=== PATIENT | male | born 1965 | race Hispanic/Latino ===

== ENCOUNTER 2023-08-10 16:24 | Emergency (ER) | payer SELFPAY ==
--- OUTSIDE RECORDS SUMMARY | 2023-08-10 16:28 | XMS REPORT | Continuity of Care Document ---
:1965 Author Organization [facility] t Address [address] [facility] [address] [place] [address] Care Team Providers Name Role Phone PCP, PATIENT DOES NOT HAVE A Primary Care Physician UnavailFatuma Polk Attending Clinician Unavailable Fatuma Gaytan Attending Clinician Doctor Unassigned, [place] Attending Clinician Unavailable TIERRA LIU Attending Clinician Unavailable LEEANNE AMARO Attending Clinician Unavailable Leeanne Anne Attending Clinician Vesta Morgan MD Attending Clinician Fatuma NICE Admitting Clinician Unavailable Payers Payer Name Policy Type Policy Number Effective Date Expiration Date S ource MEDICAID PENDING PENDING 2021 00:00:00 Problems Condition Condition Condition Status Onset Resolution Last Treating Co mments Source Name Details Category Date Date Treatment Clinician Date No known No known Disease Unive rs active active ity of problems problems [facility] Allergies, Adverse Reactions, Alerts Allergy Allergy Status Severity Reaction(s) Onset Inactive Treating Comm ents Source Name Type Date Date Clinician NO KNOWN Drug Active Univers ALLERGIE Class ity of S [facility] Social History Social Habit Start Date Stop Date Quantity Comments Source History SDOH University o f Alcohol Comment [place] [facility] Exposure to Not sure University of SARS-CoV-2 (event) [place] [facility] History of tobacco Cigarette Smoker University of use [place] [facility] History SDOH University o f Alcohol Std Drinks [place] [facility] History [facility] University o f Alcohol Binge [place] [facility] Cigarettes smoked 2021-07-05 2021-07-05 Univers ity of current (pack per 00:00:00 00:00:00 [facility] ) - Reported Branch Tobacco use and 2021-07-05 2021-07-05 Never used Universit y of exposure 00:00:00 00:00:00 [facility] Branch Alcohol intake 2021-07-05 2021-07-05 Lifetime University of 00:00:00 00:00:00 non-drinker [place] [facility] (finding) Branch History SDOH 2021-07-05 2021-07-05 1 University o f Alcohol Frequency 00:00:00 00:00:00 [facility] Tobacco Comment 2021-07-05 2021-07-05 pt smokes 3 Universi ty of 00:00:00 00:00:00 packs in a week [facility] ical [place] Sex [birth year] Universit y of 00:00:00 00:00:00 [facility] Smoking Status Start Date Stop Date Source Current every day smoker 2021-07-05 00:00:00 Uni versity of [facility] Unknown if ever smoked [facility] Medications Ordered Filled Start Stop Current Ordering Indication Dosage Frequency Signature Comments Components Source Medication Medication Date Date Medication? Clinician (SIG) Name Name magnesium 2021- No 2g 2 g, IV Univ ers sulfate in 12-06 Piggyback, it y of water 2 20:45: 22:55 ONCE, 1 [place] gram/50 mL 00 :00 dose, On Medic al (4 %) Tue Branch infusion 2 12/06/21 at g 1445, Routine NaCl 0.9% 2021- No 1000mL at 999 Uni vers (NS) bolus 12-06 mL/hr, ity of infusion 19:30: 20:30 1,000 mL, Bhargav as 1,000 mL 00 :00 IV Medical Infusion, Branch ONCE, 1 dose, On 12/06/21 at 1330, STAT ibuprofen 2020-11 Yes [id number] 600mg Take 1 U nivers 600 mg 0-11 tablet by ity of tablet 00:00: mouth [place] 00 every 6 Medical (six) Branch hours as needed for Pain (scale 4-6). gabapentin 2020-11 Yes [id number] 100mg Take 1 Univers 100 mg 0-11 capsule by ity of capsule 00:00: mouth 3 00 (three) Medical times Branch daily. ibuprofen 2020-11 Yes [id number] 600mg Take 1 U nivers 600 mg 0-11 tablet by ity of tablet 00:00: mouth [place] 00 every 6 Medical (six) Branch hours as needed for Pain (scale 4-6). gabapentin 2020-11 Yes [id number] 100mg Take 1 Univers 100 mg 0-11 capsule by ity of capsule 00:00: mouth 3 00 (three) Medical times Branch daily. ibuprofen 2020-11 Yes [id number] 600mg Take 1 U nivers 600 mg 0-11 tablet by ity of tablet 00:00: mouth [place] 00 every 6 Medical (six) Branch hours as needed for Pain (scale 4-6). gabapentin 2020-11 Yes [id number] 100mg Take 1 Univers 100 mg 0-11 capsule by ity of capsule 00:00: mouth 3 00 (three) Medical times Branch daily. metformin Yes Take by Unive rs HCl 8-17 mouth. ity of (METFORMIN 15:40: [place] ORAL) [address] [place] [address] Branch metformin Yes Take by Unive rs HCl 8-17 mouth. ity of (METFORMIN 15:40: [place] ORAL) Medical Branch metformin Yes Take by Unive rs HCl 8-17 mouth. ity of (METFORMIN 15:40: [place] ORAL) Medical Branch metformin Yes Take by Unive rs HCl 8-17 mouth. ity of (METFORMIN 10:40: [place] ORAL) Medical Branch metformin Yes Take by Unive rs HCl 8-17 mouth. ity of (METFORMIN 10:40: [place] ORAL) Medical Branch metformin Yes Take by Unive rs HCl 8-17 mouth. ity of (METFORMIN 10:40: [place] ORAL) Medical Branch tamsulosin Yes [id number] .4mg Take 1 U nivers 0.4 mg 24 8-17 capsule by ity of hr capsule 00:00: mouth [place] 00 daily. Medical Branch tamsulosin Yes [id number] .4mg Take 1 U nivers 0.4 mg 24 8-17 capsule by ity of hr capsule 00:00: mouth [place] 00 daily. Medical Branch tamsulosin 0 Yes [id number] .4mg Take 1 U nivers 0.4 mg 24 8-17 capsule by ity of hr capsule 00:00: mouth [place] 00 daily. Medical Branch tamsulosin 0 Yes [id number] .4mg Take 1 U nivers 0.4 mg 24 8-17 capsule by ity of hr capsule 00:00: mouth [place] 00 daily. Medical Branch tamsulosin Yes [id number] .4mg Take 1 U nivers 0.4 mg 24 8-17 capsule by ity of hr capsule 00:00: mouth [place] 00 daily. Medical Branch tamsulosin Yes [id number] .4mg Take 1 U nivers 0.4 mg 24 8-17 capsule by ity of hr capsule 00:00: mouth [place] 00 daily. Medical Branch ondansetron 2020- No 4mg 4 mg, Slow Univers (ZOFRAN 06-30 IV Push, ity of (PF)) 10:15: 09:10 ONCE, 1 [place] injection 4 00 :00 dose, [facility] ical mg 06/30/21 at Branch 0515, WERO ketorolac 2020- No 30mg 30 mg, Unive rs (TORADOL) 06-30 Slow IV ity of injection 10:15: 09:10 Push, [place] 30 mg 00 :00 ONCE, 1 Medical dose, [facility] 06/30/21 at 05, Routine
receiving team member approving Restricted medication : VESTA MORGAN ketorolac Yes [id number] 10mg Take 1 Un ambika 10 mg 8-12 tablet by ity of tablet 00:00: mouth [place] 00 every 6 Medical (six) Branch hours as needed for Pain (scale 7-10). ondansetron 2020-0 Yes [id number] 4mg Take 1 Univers (ZOFRAN) 4 8-12 tablet by ity of mg tablet 00:00: mouth [place] 00 every 8 Medical (eight) Branch hours as needed for Nausea and Vomiting (N/V). tamsulosin 2020-0 Yes [id number] .4mg Take 1 U nivers 0.4 mg 24 8-12 capsule by ity of hr capsule 00:00: mouth at Bhargav as 00 bedtime. Medical Branch ketorolac 2020-0 Yes [id number] 10mg Take 1 Un ambika 10 mg 8-12 tablet by ity of tablet 00:00: mouth [place] 00 every 6 Medical (six) Branch hours as needed for Pain (scale 7-10). ondansetron 2020-0 Yes [id number] 4mg Take 1 Univers (ZOFRAN) 4 8-12 tablet by ity of mg tablet 00:00: mouth [place] 00 every 8 Medical (eight) Branch hours as needed for Nausea and Vomiting (N/V). tamsulosin 2020-0 Yes [id number] .4mg Take 1 U nivers 0.4 mg 24 8-12 capsule by ity of hr capsule 00:00: mouth at Bhargav as 00 bedtime. Medical Branch ketorolac 2020-0 Yes [id number] 10mg Take 1 Un ambika 10 mg 8-12 tablet by ity of tablet 00:00: mouth [place] 00 every 6 Medical (six) Branch hours as needed for Pain (scale 7-10). ondansetron 2020-0 Yes [id number] 4mg Take 1 Univers (ZOFRAN) 4 8-12 tablet by ity of mg tablet 00:00: mouth [place] 00 every 8 Medical (eight) Branch hours as needed for Nausea and Vomiting (N/V). tamsulosin 2020-0 Yes [id number] .4mg Take 1 U nivers 0.4 mg 24 8-12 capsule by ity of hr capsule 00:00: mouth at Bhargav as 00 bedtime. Medical Branch ketorolac 2020-0 Yes [id number] 10mg Take 1 Un ambika 10 mg 8-12 tablet by ity of tablet 00:00: mouth [place] 00 every 6 Medical (six) Branch hours as needed for Pain (scale 7-10). ondansetron 2020-0 Yes [id number] 4mg Take 1 Univers (ZOFRAN) 4 8-12 tablet by ity of mg tablet 00:00: mouth [place] 00 every 8 Medical (eight) Branch hours as needed for Nausea and Vomiting (N/V). tamsulosin 2020-0 Yes [id number] .4mg Take 1 U nivers 0.4 mg 24 8-12 capsule by ity of hr capsule 00:00: mouth at Bhargav as 00 bedtime. Medical Branch ketorolac 2020-0 Yes [id number] 10mg Take 1 Un ambika 10 mg 8-12 tablet by ity of tablet 00:00: mouth [place] 00 every 6 Medical (six) Branch hours as needed for Pain (scale 7-10). ondansetron 2020-0 Yes [id number] 4mg Take 1 Univers (ZOFRAN) 4 8-12 tablet by ity of mg tablet 00:00: mouth [place] 00 every 8 Medical (eight) Branch hours as needed for Nausea and Vomiting (N/V). tamsulosin 2020-0 Yes [id number] .4mg Take 1 U nivers 0.4 mg 24 8-12 capsule by ity of hr capsule 00:00: mouth at Bhargav as 00 bedtime. Medical Branch ketorolac 2020-0 Yes [id number] 10mg Take 1 Un ambika 10 mg 8-12 tablet by ity of tablet 00:00: mouth [place] 00 every 6 Medical (six) Branch hours as needed for Pain (scale 7-10). ondansetron 2020-0 Yes [id number] 4mg Take 1 Univers (ZOFRAN) 4 8-12 tablet by ity of mg tablet 00:00: mouth [place] 00 every 8 Medical (eight) Branch hours as needed for Nausea and Vomiting (N/V). tamsulosin 2020-0 Yes [id number] .4mg Take 1 U nivers 0.4 mg 24 8-12 capsule by ity of hr capsule 00:00: mouth at Bhargav as 00 bedtime. Medical Branch ketorolac 2020-0 Yes [id number] 10mg Take 1 Un ambika 10 mg 8-12 tablet by ity of tablet 00:00: mouth [place] 00 every 6 Medical (six) Branch hours as needed for Pain (scale 7-10). ondansetron 2020-0 Yes [id number] 4mg Take 1 Univers (ZOFRAN) 4 8-12 tablet by ity of mg tablet 00:00: mouth [place] 00 every 8 Medical (eight) Branch hours as needed for Nausea and Vomiting (N/V). tamsulosin 2020-0 Yes [id number] .4mg Take 1 U nivers 0.4 mg 24 8-12 capsule by ity of hr capsule 00:00: mouth at Bhargav as 00 bedtime. Medical Branch Vital Signs Vital Name Observation Time Observation Value Comments Source Systolic blood 2021-12-06 23:00:00 110 mm[Hg] Univer sity of pressure [facility] Branch Diastolic blood 2021-12-06 23:00:00 65 mm[Hg] Unive rsity of [facility] Heart rate 2021-12-06 23:00:00 84 /min Universi ty of [facility] Branch Respiratory rate 2021-12-06 23:00:00 17 /min Univ ersity of [facility] Branch Oxygen saturation in 2021-12-06 23:00:00 98 /min University of Arterial blood by [place] [employer] [facility] Pulse oximetry Branch Body temperature 2021-12-06 17:49:00 36.78 Nicole Univ ersity of [facility] Body weight 2021-12-06 17:49:00 97.977 kg Universi ty of [facility] BMI 2021-12-06 17:49:00 34.86 kg/m2 Universi ty of [facility] Branch Systolic blood 2021-08-29 16:00:00 108 mm[Hg] Univer sity of [facility] Branch Diastolic blood 2021-08-29 16:00:00 63 mm[Hg] Unive rsity of [facility] Heart rate 2021-08-29 16:00:00 75 /min Universi ty of [facility] Body temperature 2021-08-29 15:00:00 36.61 Nicole Univ ersity of [facility] Branch Respiratory rate 2021-08-29 15:00:00 20 /min Univ ersity of [facility] Body weight 2021-08-29 15:00:00 98.3 kg Universi ty of [place] [facility] BMI 2021-08-29 15:00:00 34.98 kg/m2 Universi ty of [facility] Oxygen saturation in 2021-08-29 15:00:00 100 /min University of Arterial blood by [place] [employer] Pulse oximetry Branch Systolic blood 2021-07-05 15:06:00 107 mm[Hg] Univer sity of pressure [facility] Branch Diastolic blood 2021-07-05 15:06:00 72 mm[Hg] Unive rsity of [facility] Branch Heart rate 2021-07-05 15:06:00 88 /min Universi ty of [facility] [place] [facility] Body temperature 2021-07-05 15:06:00 35.5 Nicole [facility] Respiratory rate 2021-07-05 15:06:00 20 /min [facility] Body height 2021-07-05 15:06:00 167.6 cm Universi ty of [facility] Body weight 2021-07-05 15:06:00 98.793 kg [facility] BMI 2021-07-05 15:06:00 35.15 kg/m2 [facility] Oxygen saturation in 2021-07-05 15:06:00 96 /min [place] of Arterial blood by [facility] Pulse oximetry Branch Systolic blood 2021-06-30 10:00:00 138 mm[Hg] Univer sity of [facility] Diastolic blood 2021-06-30 10:00:00 91 mm[Hg] [facility] Heart rate 2021-06-30 10:00:00 84 /min Universi ty [facility] Respiratory rate 2021-06-30 10:00:00 17 /min [facility] Oxygen saturation in 2021-06-30 10:00:00 98 /min [place] of Arterial blood by [facility] Pulse oximetry Branch Body temperature 2021-06-30 08:57:00 37.28 Nicole [facility] Body weight 2021-06-30 08:57:00 98.884 kg [facility] Procedures Procedure Date / Time Performing Clinician Source Performed POCT GLUCOSE(AGE 2021-12-06 21:21:00 Fatuma Nice [facility] >30DAYS) Medical Branch POCT GLUCOSE 2021-12-06 21:19:00 Fatuma Nice [facility] (AUTOMATED) [facility] Branch TROPONIN I 2021-12-06 21:18:00 Fatuma Nice [facility] LACTIC ACID WHOLE BLOOD 2021-12-06 21:17:00 Fatuma Nice [facility] XR ABDOMEN 2 VW 2021-12-06 20:15:21 [facility], K [facility] XR CHEST 1 VW 2021-12-06 18:36:53 Fatuma Nice [facility] LIPASE 2021-12-06 18:05:00 Fatuma Nice [facility] MAGNESIUM 2021-12-06 18:05:00 Fatuma Nice [facility] TROPONIN I 2021-12-06 18:05:00 Fatuma Nice [facility] COMP. METABOLIC PANEL 2021-12-06 18:05:00 Fatuma Nice [facility] ([id number]) [facility] CBC WITH DIFF 2021-12-06 18:05:00 Fatuma Nice [facility] PROTHROMBIN TIME / INR 2021-12-06 18:05:00 Fatuma Nice [facility] ACTIVATED PARTIAL 2021-12-06 18:05:00 Fatuma Nice [facility] THRMPLAS ANTONI [facility] URINALYSIS 2021-12-06 18:05:00 Fatuma Nice [facility] N-TERMINAL PRO-BNP 2021-12-06 18:05:00 Fatuma Nice [facility] LACTIC ACID WHOLE BLOOD 2021-12-06 18:05:00 Fatuma Nice [facility] COVID-19 (ID NOW RAPID 2021-12-06 18:05:00 Fatuma Nice [facility] TESTING) Medical Branch POCT GLUCOSE 2021-12-06 17:52:00 Doctor Unassigned, No [facility] (AUTOMATED) Name Medical Branch NOTICE OF PRIVACY 2021-12-06 17:44:25 Doctor Unassigned, No [facility] PRACTICES Name Medical Branch CONSENT/REFUSAL FOR 2021-12-06 17:42:32 [facility] Name Medical Branch MAGNESIUM 2021-08-29 15:11:00 Fatuma Nice [facility] COMP. METABOLIC PANEL 2021-08-29 15:11:00 Fatuma Nice [facility] ([id number]) Medical Branch CBC WITH DIFF 2021-08-29 15:11:00 Fatuma Nice [facility] o [facility] URINALYSIS 2021-08-29 15:11:00 Fatuma Nice [facility] o f [facility] POCT URINALYSIS AUTO 2021-07-05 15:17:00 Leeanne Amaro [facility] CT ABDOMEN PELVIS WO 2021-06-30 09:21:32 Vesta Morgan [facility] COMP. METABOLIC PANEL 2021-06-30 09:18:00 Vesta Morgan [facility] ([id number]) Medical [place] CBC WITH DIFF 2021-06-30 09:18:00 Vesta Morgan [facility] URINALYSIS 2021-06-30 09:18:00 Vesta Morgan [facility] NOTICE OF PRIVACY 2021-06-30 08:35:20 Doctor Unassigned, No [facility] PRACTICES Name Medical Branch CONSENT/REFUSAL FOR 2021-06-30 08:35:02 Doctor Unassigned, No [facility] DIAGNOSIS AND TREATMENT Name [facility] Encounters Start End Encounter Admission Attending Care Care Encounter Source Date/Time Date/Time Type Type Clinicians Facility Department ID 2021-09-20 Emergency [facility] [id number] Univers 05:42:27 [facility] 2023-08-07 2023-08-07 Outpatient [facility] [id number] Earnest 14:56:11 14:56:11 0919 F Roggen 2023-06-04 2023-06-04 Outpatient [facility] [id number] Earnest 09:47:52 09:47:52 0717 [facility] 2021-12-06 2021-12-06 Emergency X Fatuma NICE [facility] ERT [id number] Univers 12:14:00 17:02:00 [facility] 2021-12-06 2021-12-06 Emergency Fatuma Nice [facility] [id number] Univers 12:14:00 17:02:00 Yuliana SCHWARTZ [id number] i ty jennifer [facility] [id number] [facility] [id number] [facility] [address]84 [place] 2021-12-06 2021-12-06 Orders Doctor DUONG [id number] Univers 00:00:00 00:00:00 Only Unassigned, MIKEY [id number] ity of [place] [facility] [id number] Bhargav as [id number] [facility] [address] [place] 2021-08-29 2021-08-29 Emergency Fatuma Nice [facility] [id number] Univers 10:02:00 11:33:00 Yuliana Schwartz [id number] i ty of [place] [id number] [facility] [id number] [address] 2021-08-01 2021-08-01 [facility] [id number] Univers 08:30:00 08:30:00 TIERRA ity [facility] 2021-07-05 2021-07-05 Out[facility] [id number] Univers 10:00:00 10:35:[address] [facility] 2021-07-05 2021-07-05 Office [facility] [id number] Univers 09:55:24 10:35:59 Visit Leeanne Schwartz [id number] ity of [place] [id number] [facility] Professio [id number] [facility] [address] 2021-06-30 2021-06-30 Emergency [facility] [id number] Univers 03:46:00 05:59:00 Vesta Schwartz [id number] ity of [place] [id number] [facility] [id number] [address] 2021-06-30 2021-06-30 Emergency X [facility] ERT [id number] Univers 03:34:00 03:34:00 ity [facility] Results Test Description Test Time Test Comments Results Result Comments Source TROPONIN I 2021-12-06 21:55:19 Test Item Value Reference Range Interpretation Comme nts TROPONIN I (test code = 0.001 ng/mL See_Comment [Au tomated message] The [id number]) system which ge nerated this result tra nsmitted reference range : <=0.034. The reference r mary was not used to int erpret this result as normal/abnormal . TRICE (test code = TRICE) Reference (Normal) Range (defined by the 99th percentile reference limit): <= 0.034 ng/mL Note: Cardiac troponin begins to rise 3-4 hours after the onset of ischemia. Repeat in 4-6 hours if the sample was drawn within 3-4 hours of the onset of the symptom and found normal. Diagnosis of myocardial injury is made with acute changes in cTn concentrations with at least one serial sample above the 99th percentile upper reference limit (URL), taken together with the patient's clinical presentation. Biotin has been reported to cause a negative bias, interpret results relative to patient's use of biotin. Lab Interpretation Normal (test code = 79427-1) [facility] Whole [id number] 21:36:12 Test Item Value Reference Range Interpretation Comments LACTIC ACID (test code = 2.33 mmol/L 0.50-2.20 H 3787681784) Lab Interpretation (test code = Abnormal 50038-0) [facility] GLUCOSE (AUTOMATED)2021-12-06 21:21:46 Test Item Value Reference Range Interpretation Comments POCT GLU (test code = 6958577873) 284 mg/dL 70-110 H Lab Interpretation (test code = Abnormal 27387-5) [facility] GLUCOSE(AGE >30DAYS)2021-12-06 21:21:00 Test Item Value Reference Range Interpretation Comments POCT Glu (age>30days) (test code = 284 mg/dL 70-110 A 3342) Lab Interpretation (test code = Abnormal 23483-1) [facility] [id number] 19:29:43 Test Item Value Reference Range Interpretation Comments NT-proBNP (test code <11 See_Comment [Autom ated = [id number]) message] The system which generated this result transmitted reference range : <=125 pg/mL. Th e reference range was not used to interpret this result as normal/abnormal . TRICE (test code = TIRCE) Biotin has been reported to cause a negative bias, interpret results relative to patient's use of biotin. Lab Interpretation Normal (test code = 59675-8) [facility] [id number] 19:12:18 Test Item Value Reference Interpretation Comments Range TROPONIN I (test 0.003 ng/mL See_Comment [Automated code = [id number]) message] The system which generated this result transmitted reference range : <=0.034. The reference range was not used to interpret this result as normal/abnormal . TRICE (test code = Reference (Normal) TRICE) Range (defined by the 99th percentile reference limit): <= 0.034 ng/mL Note: Cardiac troponin begins to rise 3-4 hours after the onset of ischemia. Repeat in 4-6 hours if the sample was drawn within 3-4 hours of the onset of the symptom and found normal. Diagnosis of myocardial injury is made with acute changes in cTn concentrations with at least one serial sample above the 99th percentile upper reference limit (URL), taken together with the patient's clinical presentation. Biotin has been reported to cause a negative bias, interpret results relative to patient's use of biotin. Lab Interpretation Normal (test code = 90314-5) [facility]2022-01-18 19:02:11 Test Item Value Reference Range Interpretation Comments MAGNESIUM (test code = 3867586256) 1.6 mg/dL 1.7-2.4 L Lab Interpretation (test code = Abnormal 51713-3) [facility]OLIC PAN[facility] (55996)2021-12-06 19:01:34 Test Item Value Reference Range Interpretation Comments NA (test code = 132 mmol/L 135-145 L 3112000689) K (test code = 4.8 mmol/L 3.5-5.0 6062484469) CL (test code = 97 mmol/L 98-108 L 2455836801) CO2 TOTAL (test code = 27 mmol/L 23-31 3409619832) AGAP (test code = 2-16 7319146382) BUN (test code = 9 mg/dL 7-23 7891197555) GLUCOSE (test code = 351 mg/dL 70-110 H 9640467896) CREATININE (test code = 0.65 mg/dL 0.60-1.25 3213872643) TOTAL BILI (test code = 1.1 mg/dL 0.1-1.0 4282208141) CALCIUM (test code = 8.5 mg/dL 8.6-10.6 L 4009862881) T PROTEIN (test code = 7.6 g/dL 6.3-8.2 6230260806) ALBUMIN (test code = 4.4 g/dL 3.5-5.0 5735187147) ALK PHOS (test code = 166 U/L 34-122 H 7678513064) ALTv (test code = 38 U/L 5-50 1742-6) AST(SGOT) (test code = 44 U/L 13-40 H 9666246112) eGFR (test code = mL/min/1.73m2 5888158864) TRICE (test code = TRICE) Association of Glomerular Filtration Rate (GFR) and Staging of Kidney Disease* + --+ --+ ------+| GFR (mL/min/1.73 m2) ?| With Kidney Damage ?| ?Without Kidney Damage+ --------+ --------+ +| ?>90 ?| ?Stage one ?| ? Normal ?+ ---+ ---+ -------+| ?60-89 ?| ?Stage two ?| ? Decreased GFR ? + --+ --+ ------+| ?30-59 ?| ?Stage three ?| ? Stage three ? + --+ --+ ------+| ?15-29 ?| ?Stage four ? | ? Stage four ?+ ---+ ---+ -------+| ?<15 (or dialysis) ? ?| ?Stage five ? | ? Stage five ?+ ---+ ---+ -------+ *Each stage assumes the associated GFR level has been in effect for at least three months. ?Stages 1 to 5, with or without kidney disease, indicate chronic kidney disease. Notes: Determination of stages one and two (with eGFR >59mL/min/1.73 m2) requires estimation of kidney damage for at least three months as defined by structural or functional abnormalities of the kidney, manifested by either:Pathological abnormalities or Markers of kidney damage (including abnormalities in the composition of the blood or urine or abnormalities in imaging tests). Lab Interpretation Abnormal (test code = 26671-1) [facility] [id number] 19:01:34 Test Item Value Reference Range Interpretation Comments LIPASE (test code = 2520936890) 108 U/L 0-220 Lab Interpretation (test code = Normal 14890-3) [facility] 18:59:33 Test Item Value Reference Range Interpretation Comments APTT Patient (test See_Comment [Automat ed code = 3173-2) message] The system which generated this result transmitted reference range : 23 - 38 Seconds . The reference range was not used to interpr et this result as normal/abnormal . TRICE (test code = TRICE) The [facility] patient population mean normal value for aPTT is 30 seconds. Lab Interpretation Normal (test code = 16047-1) [facility] HospitalPROTHROMBIN [facility] / [id number] 18:57:31 Test Item Value Reference Range Interpretation Comments PROTIME PATIENT (test See_Comment [Auto mated message] code = 5964-2) The system wh ich generated this result transmitted ref erence range: 12.0 - 1 4.7 Seconds. The re ference range was not u sed to interpret this result as normal/abnor mal. INR (test code = 6301-6) Nor mal INR <1.1; Warfarin Therap eutic range 2.0 to 3. 0 or 2.5 to 3.5, dep ending upon the indica tions. Lab Interpretation (test Normal code = 87907-4) [facility]CBC WITH [id number] 18:55:14 Test Item Value Reference Range Interpretation Comments WBC (test code = See_Comment [Automated 8090-2) message] The sy stem which generated this result transmitted reference range : 4.20 - 10.70 10*3/?L. The reference range was not used to interpret this result as normal/abnormal . RBC (test code = See_Comment L [Automated 318-8) message] The sy stem which generated this result transmitted reference range : 4.26 - 5.52 10*6/?L. The reference range was not used to interpret this result as normal/abnormal . HGB (test code = 12.7 g/dL 12.2-16.4 718-7) HCT (test code = 35.0 % 38.4-49.3 L 4544-3) MCV (test code = 105.7 fL 81.7-95.6 H 787-2) MCH (test code = 38.4 pg 26.1-32.7 H 785-6) MCHC (test code = 36.3 g/dL 31.2-35.0 H 786-4) RDW-SD (test code = 57.6 fL 38.5-51.6 H 01502-3) RDW-CV (test code = 14.9 % 12.1-15.4 788-0) PLT (test code = See_Comment [Automated 777-3) message] The sy stem which generated this result transmitted reference range : 150 - 328 10*3/ ?L. The reference r mary was not used to interpret this result as normal/abnormal . MPV (test code = 11.3 fL 9.8-13.0 05738-0) NRBC/100 WBC (test See_Comment [Automat ed code = 8029668583) message] The system which generated this result transmitted reference range : 0.0 - 10.0 /100 WBCs. The refer ence range was not u sed to interpret th is result as normal/abnormal . NRBC x10^3 (test code <0.01 See_Comment [Auto mated = 7860969220) message] The s ystem which generated this result transmitted reference range : 10*3/?L. The reference range was not used to interpret this result as normal/abnormal . GRAN MAT (NEUT) % 50.3 % (test code = 770-8) IMM GRAN % (test code 0.10 % = 7731134966) LYMPH % (test code = 40.0 % 736-9) MONO % (test code = 7.3 % 5905-5) EOS % (test code = 1.9 % 713-8) BASO % (test code = 0.4 % 706-2) GRAN MAT x10^3(ANC) 3.35 10*3/uL 1.99-6.95 (test code = 7027257979) IMM GRAN x10^3 (test <0.03 0.00-0.06 code = 9644989652) LYMPH x10^3 (test code 2.67 10*3/uL 1.09-3.23 = 731-0) MONO x10^3 (test code 0.49 10*3/uL 0.36-1.02 = 742-7) EOS x10^3 (test code = 0.13 10*3/uL 0.06-0.53 711-2) BASO x10^3 (test code 0.03 10*3/uL 0.01-0.09 = 704-7) Lab Interpretation Abnormal (test code = 97965-7) [facility]PO[facility]SE (AUTOMATED)2021-12-06 17:54:25 Test Item Value Reference Range Interpretation Comments POCT GLU (test code = 340 mg/dL 70-110 H Notifi ed Provider [id number]) Lab Interpretation (test Abnormal code = 11157-4) [facility] HospitalMAGNESIUM2021-10-11 16:02:44 Test Item Value Reference Range Interpretation Comments MAGNESIUM (test code = 5249018455) 1.7 mg/dL 1.7-2.4 Lab Interpretation (test code = Normal 91178-9) [facility] HospitalCOMP. METABOLIC PANEL ([id number])2021-08-29 16:02:23 Test Item Value Reference Range Interpretation Comments NA (test code = 138 mmol/L 135-145 8236159541) K (test code = 5.5 mmol/L 3.5-5.0 H 4193109744) CL (test code = 103 mmol/L 98-108 4584015057) CO2 TOTAL (test code = 28 mmol/L 23-31 7948543232) AGAP (test code = 2-16 7303210646) BUN (test code = 12 mg/dL 7-23 4035097040) GLUCOSE (test code = 226 mg/dL 70-110 H 1855896455) CREATININE (test code = 0.76 mg/dL 0.60-1.25 8498546234) TOTAL BILI (test code = 1.0 mg/dL 0.1-1.9 3348665637) CALCIUM (test code = 9.2 mg/dL 8.6-10.6 8351182132) T PROTEIN (test code = 7.6 g/dL 6.3-8.2 2164679632) ALBUMIN (test code = 4.4 g/dL 3.5-5.0 9049048863) ALK PHOS (test code = 116 U/L 34-122 1846139685) ALTv (test code = 52 U/L 5-50 H 2-6) AST(SGOT) (test code = 63 U/L 13-40 H 9223376860) eGFR (test code = mL/min/1.73m2 8302658482) TRICE (test code = TRICE) Association of Glomerular Filtration Rate (GFR) and Staging of Kidney Disease* + --+ --+ ------+| GFR (mL/min/1.73 m2) ?| With Kidney Damage ?| ?Without Kidney Damage+ --------+ --------+ +| ?>90 ?| ?Stage one ?| ? Normal ?+ ---+ ---+ -------+| ?60-89 ?| ?Stage two ?| ? Decreased GFR ? + --+ --+ ------+| ?30-59 ?| ?Stage three ?| ? Stage three ? + --+ --+ ------+| ?15-29 ?| ?Stage four ? | ? Stage four ?+ ---+ ---+ -------+| ?<15 (or dialysis) ? ?| ?Stage five ? | ? Stage five ?+ ---+ ---+ -------+ *Each stage assumes the associated GFR level has been in effect for at least three months. ?Stages 1 to 5, with or without kidney disease, indicate chronic kidney disease. Notes: Determination of stages one and two (with eGFR >59mL/min/1.73 m2) requires estimation of kidney damage for at least three months as defined by structural or functional abnormalities of the kidney, manifested by either:Pathological abnormalities or Markers of kidney damage (including abnormalities in the composition of the blood or urine or abnormalities in imaging tests). Lab Interpretation Abnormal (test code = 88453-3) [facility] WITH [id number] 15:22:03 Test Item Value Reference Range Interpretation Comments WBC (test code = See_Comment [Automated 6690-2) message] The sy stem which generated this result transmitted reference range : 4.20 - 10.70 10*3/?L. The reference range was not used to interpret this result as normal/abnormal . RBC (test code = See_Comment L [Automated 789-8) message] The sy stem which generated this result transmitted reference range : 4.26 - 5.52 10*6/?L. The reference range was not used to interpret this result as normal/abnormal . HGB (test code = 12.9 g/dL 12.2-16.4 718-7) HCT (test code = 37.4 % 38.4-49.3 L 4544-3) MCV (test code = 108.7 fL 81.7-95.6 H 787-2) MCH (test code = 37.5 pg 26.1-32.7 H 785-6) MCHC (test code = 34.5 g/dL 31.2-35.0 786-4) RDW-SD (test code = 54.6 fL 38.5-51.6 H 00719-8) RDW-CV (test code = 13.6 % 12.1-15.4 788-0) PLT (test code = See_Comment [Automated 777-3) message] The sy stem which generated this result transmitted reference range : 150 - 328 10*3/ ?L. The reference r mary was not used to interpret this result as normal/abnormal . MPV (test code = 10.7 fL 9.8-13.0 99962-3) NRBC/100 WBC (test See_Comment [Automat ed code = 1200461797) message] The system which generated this result transmitted reference range : 0.0 - 10.0 /100 WBCs. The refer ence range was not u sed to interpret th is result as normal/abnormal . NRBC x10^3 (test code <0.01 See_Comment [Auto mated = 5564125265) message] The s ystem which generated this result transmitted reference range : 10*3/?L. The reference range was not used to interpret this result as normal/abnormal . GRAN MAT (NEUT) % 48.3 % (test code = 770-8) IMM GRAN % (test code 0.20 % = 0435406036) LYMPH % (test code = 39.4 % 736-9) MONO % (test code = 9.8 % 5905-5) EOS % (test code = 2.0 % 713-8) BASO % (test code = 0.3 % 706-2) GRAN MAT x10^3(ANC) 2.95 10*3/uL 1.99-6.95 (test code = 0691333395) IMM GRAN x10^3 (test <0.03 0.00-0.06 code = 4125636058) LYMPH x10^3 (test code 2.41 10*3/uL 1.09-3.23 = 731-0) MONO x10^3 (test code 0.60 10*3/uL 0.36-1.02 = 742-7) EOS x10^3 (test code = 0.12 10*3/uL 0.06-0.53 711-2) BASO x10^3 (test code <0.03 0.01-0.09 = 704-7) Lab Interpretation Abnormal (test code = 21010-5) [facility] URINALYSIS, [id number] 15:18:00 Test Item Value Reference Range Interpretation Comments POCT U SP GRAV (test code = 1.030 mg/dl 1.005-1.025 A 3255) POCT PH U (test code = 3254) 5.0 mg/dl 5-8 POCT U LEUK EST (test code = Negative Negative - Negative 3263) POCT U NIT (test code = Negative Negative - Negative 3262) POCT U PROT (test code = Trace Negative - Negative 3259) POCT U GLU (test code = Negative - Negative 3256) POCT U KETONE (test code = Trace Negative - Negative 3258) POCT U UROBILI (test code = 0.2 mg/dl 0.2-1 3260) POCT U BILI (test code = Small Negative - Negative 3261) POCT U BLD (test code = Trace-intact Negative - Negative 3257) POCT U COLOR (test code = Dark yellow 3266) POCT U APPEAR (test code = clear 3267) Lab Interpretation (test Abnormal code = 54750-9) [facility] URINALYSIS, [id number] 15:18:00 Test Item Value Reference Range Interpretation Comments POCT U SP GRAV (test code = 1.030 mg/dl 1.005-1.025 A 3255) POCT PH U (test code = 3254) 5.0 mg/dl 5-8 POCT U LEUK EST (test code = Negative Negative - Negative 3263) POCT U NIT (test code = Negative Negative - Negative 3262) POCT U PROT (test code = Trace Negative - Negative 3259) POCT U GLU (test code = Negative - Negative 3256) POCT U KETONE (test code = Trace Negative - Negative 3258) POCT U UROBILI (test code = 0.2 mg/dl 0.2-1 3260) POCT U BILI (test code = Small Negative - Negative 3261) POCT U BLD (test code = Trace-intact Negative - Negative 3257) POCT U COLOR (test code = Dark yellow 3266) POCT U APPEAR (test code = clear 3267) Lab Interpretation (test Abnormal code = 41659-8) [facility] URINALYSIS, [id number] 15:18:00 Test Item Value Reference Range Interpretation Comments POCT U SP GRAV (test code = 1.030 mg/dl 1.005-1.025 A 3255) POCT PH U (test code = 3254) 5.0 mg/dl 5-8 POCT U LEUK EST (test code = Negative Negative - Negative 3263) POCT U NIT (test code = Negative Negative - Negative 3262) POCT U PROT (test code = Trace Negative - Negative 3259) POCT U GLU (test code = Negative - Negative 3256) POCT U KETONE (test code = Trace Negative - Negative 3258) POCT U UROBILI (test code = 0.2 mg/dl 0.2-1 3260) POCT U BILI (test code = Small Negative - Negative 3261) POCT U BLD (test code = Trace-intact Negative - Negative 3257) POCT U COLOR (test code = Dark yellow 3266) POCT U APPEAR (test code = clear 3267) Lab Interpretation (test Abnormal code = 32365-5) [facility] METABOLIC PANEL ([id number])2021-06-30 09:56:51 Test Item Value Reference Range Interpretation Comments NA (test code = 134 mmol/L 135-145 L 9863588001) K (test code = 4.0 mmol/L 3.5-5.0 0060357632) CL (test code = 102 mmol/L 98-108 8119360097) CO2 TOTAL (test code = 24 mmol/L 23-31 1935000396) AGAP (test code = 2-16 1823751953) BUN (test code = 13 mg/dL 7-23 5086054639) GLUCOSE (test code = 286 mg/dL 70-110 H 1145182388) CREATININE (test code = 0.77 mg/dL 0.60-1.25 2825513119) TOTAL BILI (test code = 0.9 mg/dL 0.1-1.3 7944186525) CALCIUM (test code = 9.3 mg/dL 8.6-10.6 9135802794) T PROTEIN (test code = 7.3 g/dL 6.3-8.2 3411634046) ALBUMIN (test code = 4.3 g/dL 3.5-5.0 2574410159) ALK PHOS (test code = 156 U/L 34-122 H 7581380720) ALTv (test code = 54 U/L 5-50 H 1742-6) AST(SGOT) (test code = 51 U/L 13-40 H 4447220968) eGFR (test code = mL/min/1.73m2 4398475455) TRICE (test code = TRICE) Association of Glomerular Filtration Rate (GFR) and Staging of Kidney Disease* + --+ --+ ------+| GFR (mL/min/1.73 m2) ?| With Kidney Damage ?| ?Without Kidney Damage+ --------+ --------+ +| ?>90 ?| ?Stage one ?| ? Normal ?+ ---+ ---+ -------+| ?60-89 ?| ?Stage two ?| ? Decreased GFR ? + --+ --+ ------+| ?30-59 ?| ?Stage three ?| ? Stage three ? + --+ --+ ------+| ?15-29 ?| ?Stage four ? | ? Stage four ?+ ---+ ---+ -------+| ?<15 (or dialysis) ? ?| ?Stage five ? | ? Stage five ?+ ---+ ---+ -------+ *Each stage assumes the associated GFR level has been in effect for at least three months. ?Stages 1 to 5, with or without kidney disease, indicate chronic kidney disease. Notes: Determination of stages one and two (with eGFR >59mL/min/1.73 m2) requires estimation of kidney damage for at least three months as defined by structural or functional abnormalities of the kidney, manifested by either:Pathological abnormalities or Markers of kidney damage (including abnormalities in the composition of the blood or urine or abnormalities in imaging tests). Lab Interpretation Abnormal (test code = 27655-2) [facility] 09:47:51 Test Item Value Reference Range Interpretation Comments APPEARANCE (test code = Hazy Clear A 3325125855) COLOR (test code = Vivian Yellow A 1918847183) PH (test code = 4.8-8.0 2815985175) SP GRAVITY (test code = 1.003-1.030 8382990031) GLU U QUAL (test code = 50 mg/dL Normal A 4784982614) BLOOD (test code = 1+ Negative A 0889739310) KETONES (test code = 5 mg/dL Negative A 4109428313) PROTEIN (test code = 30 mg/dL Negative A 2887-8) UROBILIN (test code = 2.0 mg/dL Normal A 3896236808) BILIRUBIN (test code = Negative Negative 4890631490) NITRITE (test code = Negative Negative 6877187631) LEUK NEREYDA (test code = Negative Negative 0826676661) RBC/HPF (test code = See_Comment H [Autom ated message] 4011433228) The system Well generated this result transmit heather reference range : 0 - 3 HPF. The refe rence range was not u sed to interpret th is result as normal/abnormal . WBC/HPF (test code = See_Comment [Autom ated message] 1199928910) The system Well generated this result transmit heather reference range : 0 - 5 HPF. The refe rence range was not u sed to interpret th is result as normal/abnormal . BACTERIA (test code = Few Negative A 2537759006) MUCOUS (test code = Slight Negative LPF A 2685600308) SQ EPITH (test code = <1 HPF 8711389384) CA OXALATE (test code = See_Comment H [Au tomated message] 0513672605) The system Well generated this result transmit heather reference range : <=1 HPF. The refere nce range was not u sed to interpret th is result as normal/abnormal . HYAL CAST (test code = See_Comment H [Aut omated message] 2757128686) The system Well generated this result transmit heather reference range : <=2 LPF. The refere nce range was not u sed to interpret th is result as normal/abnormal . Lab Interpretation (test Abnormal code = 23429-9) [facility] WITH [id number] 09:37:51 Test Item Value Reference Range Interpretation Comments WBC (test code = See_Comment [Automated 6690-2) message] The sy stem which generated this result transmitted reference range : 4.20 - 10.70 10*3/?L. The reference range was not used to interpret this result as normal/abnormal . RBC (test code = See_Comment L [Automated 789-8) message] The sy stem which generated this result transmitted reference range : 4.26 - 5.52 10*6/?L. The reference range was not used to interpret this result as normal/abnormal . HGB (test code = 12.5 g/dL 12.2-16.4 718-7) HCT (test code = 35.2 % 38.4-49.3 L 4544-3) MCV (test code = 102.9 fL 81.7-95.6 H 787-2) MCH (test code = 36.5 pg 26.1-32.7 H 785-6) MCHC (test code = 35.5 g/dL 31.2-35.0 H 786-4) RDW-SD (test code = 53.1 fL 38.5-51.6 H 41276-5) RDW-CV (test code = 14.1 % 12.1-15.4 788-0) PLT (test code = See_Comment [Automated 777-3) message] The sy stem which generated this result transmitted reference range : 150 - 328 10*3/ ?L. The reference r mary was not used to interpret this result as normal/abnormal . MPV (test code = 10.8 fL 9.8-13.0 82080-4) NRBC/100 WBC (test See_Comment [Automat ed code = 7223523973) message] The system which generated this result transmitted reference range : 0.0 - 10.0 /100 WBCs. The refer ence range was not u sed to interpret th is result as normal/abnormal . NRBC x10^3 (test code <0.01 See_Comment [Auto mated = 5869746757) message] The s ystem which generated this result transmitted reference range : 10*3/?L. The reference range was not used to interpret this result as normal/abnormal . GRAN MAT (NEUT) % 57.5 % (test code = 770-8) IMM GRAN % (test code 0.30 % = 1696134388) LYMPH % (test code = 28.5 % 736-9) MONO % (test code = 11.2 % 5905-5) EOS % (test code = 1.9 % 713-8) BASO % (test code = 0.6 % 706-2) GRAN MAT x10^3(ANC) 3.86 10*3/uL 1.99-6.95 (test code = 8881280192) IMM GRAN x10^3 (test <0.03 0.00-0.06 code = 5677736805) LYMPH x10^3 (test code 1.91 10*3/uL 1.09-3.23 = 731-0) MONO x10^3 (test code 0.75 10*3/uL 0.36-1.02 = 742-7) EOS x10^3 (test code = 0.13 10*3/uL 0.06-0.53 711-2) BASO x10^3 (test code 0.04 10*3/uL 0.01-0.09 = 704-7) Lab Interpretation Abnormal (test code = 55456-8) [facility]"
[2023-08-10] MEDS ORDERED: TDAP (DIPHTH,PERTUSS(ACELL),TET VAC) 0.5 ML VIAL IMVAC ONE (16:53)
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
[2023-08-10] MEDS ORDERED: LIDOCAINE 1% MPF 5 ML VIAL ONE (17:45)
[2023-08-10] MEDS ORDERED: DERMABOND SKIN ADHESIVE TOP ONE (17:45)
[2023-08-10] MEDS ORDERED: IBUPROFEN 400 MG TAB ONE (18:19)
[2023-08-10] MEDS ORDERED: HYDROCODONE/APAP 5/325 MG TAB ONE (18:19)
--- NOTE | 2023-08-10 18:23 | EDPHYS ---
Physician Documentation [facility] Name: Noe Douglas Age: 58 yrs Sex: Male : 1965 Arrival Date: 08/10/2023 Time: 16:24 Bed 2 Private MD: ED Physician Henrique Díaz HPI: 08/10 16:40 This 58 yrs old Male presents to ER via Ambulatory with complaints of Head cp Injury-Adult, Hand Injury. 16:40 The patient or guardian reports injury, a laceration. The complaints affect the left cp yazidi abd lower lip. 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 16:40 Onset: The symptoms/episode began/occurred just prior to arrival. Associated signs and cp symptoms: Loss of consciousness: This patient did not experience any loss of consciousness. Pertinent positives: headache, right hand laceration, Pertinent negatives: neck pain. Historical: - Allergies: 16:36 No Known Allergies; cm10 - PMHx: 16:36 Diabetes mellitus; cm10 - Immunization history:: Adult Immunizations unknown. - Social history:: Smoking status: Patient reports the use of cigarette tobacco products, smokes one pack cigarettes per day. ROS: 16:45 Constitutional: Negative for body aches, chills, fever, poor PO intake, cp 16:45 Eyes: Negative for injury, pain, redness, and discharge, cp 16:45 ENT: Positive for dental injury, 16:45 Neck: Negative for pain with movement, pain at rest, stiffness, 16:45 Cardiovascular: Negative for chest pain, 16:45 Respiratory: Negative for cough, shortness of breath, wheezing, 16:45 Abdomen/GI: Negative for abdominal pain, vomiting, diarrhea, constipation, 16:45 MS/extremity: Positive for laceration, of the right hand, 16:45 Skin: Positive for laceration(s), of the left yazidi and lower lip of face, 16:45 Neuro: Positive for headache, Negative for loss of consciousness, 16:45 All other systems are negative, Exam: 16:50 Constitutional: The patient appears in no acute distress, alert, awake, non-toxic, well cp developed, well nourished, 16:50 Head/face: Noted is a laceration(s), that is superficial, that is linear, of the left cp yazidi and lower lip, 16:50 Eyes: Pupils: equal, round, and reactive to light and accomodation, Extraocular movements: intact throughout, Conjunctiva: normal, no exudate, no injection, Lids and lashes: appear normal, bilaterally, 16:50 ENT: External ear(s): are unremarkable, Ear canal(s): are normal, clear, TM's: dullness, bilaterally, Nose: is normal, Mouth: Lips: lacerated, lower lip, superficial, scant bleeding, Posterior pharynx: Airway: no evidence of obstruction, patent, swelling, is not appreciated, Dental exam: pain, that is mild, specifically in the lower left central incisor (#24), loose, intact, mild gum bleeding, Voice: is normal, 16:50 Neck: C-spine: vertebral tenderness, is not appreciated, crepitus, is not appreciated, ROM/movement: is normal, is supple, without pain, no range of motions limitations, 16:50 Chest/axilla: Inspection: normal, Palpation: is normal, no crepitus, no tenderness, 16:50 Cardiovascular: Rate: normal, Rhythm: regular, 16:50 Respiratory: the patient does not display signs of respiratory distress, Respirations: normal, no use of accessory muscles, no retractions, labored breathing, is not present, Breath sounds: are clear throughout, no decreased breath sounds, no stridor, no wheezing, 16:50 Abdomen/GI: Inspection: abdomen appears normal, Palpation: abdomen is soft and non-tender, in all quadrants, 16:50 Back: pain, is absent, ROM is normal, 16:50 Skin: injury, laceration(s), the wound is approximately 2.5 cm(s), of the left yazidi area, that can be described as clean, no foreign body, linear, with mild bleeding, 16:50 Skin: injury, laceration(s), the wound is approximately 2 cm(s), of the dorsal aspect metatarsal head of right middle finger, that can be described as clean, no foreign body, linear, with mild bleeding, 16:50 Neuro: Orientation: to person, place \T\ time. Mentation: is normal, Motor: moves all fours, strength is normal, Vital Signs: 16:33 BP 125 / 81; Pulse 91; Resp 18; Temp 97.9; Pulse Ox 98% ; Weight 86.18 kg; Height 5 ft. cm10 6 in. ; Pain 7/10; 17:39 BP 109 / 76; Pulse 81; Resp 18; Pulse Ox 98% on R/A; ld1 16:33 Body Mass Index 30.67 (86.18 kg, 167.64 cm) cm10 16:33 Pain Scale: Adult cm10 Arlene Coma Score: 16:33 Eye Response: spontaneous(4). Motor Response: obeys commands(6). Verbal Response: cm10 oriented(5). Total: 15. 16:40 Eye Response: spontaneous(4). Motor Response: obeys commands(6). Verbal Response: cp oriented(5). Total: 15. MDM: 16:44 Patient medically screened. cp 18:21 Data reviewed: vital signs, nurses notes, radiologic studies, CT scan, plain films. cp 18:21 Differential diagnosis: Laceration of Intracranial bleed- Concussion facial fracture. I cp considered the following discharge prescriptions or medication management in the emergency department Medications were administered in the Emergency Department. See MAR. Independent interpretation of the following test(s) in the Emergency Department X-Ray: My interpretation is images of right hand negative for fracture. Care significantly affected by the following chronic conditions: Diabetes. Counseling: I had a detailed discussion with the patient and/or guardian regarding the historical points, exam findings, and any diagnostic results supporting the discharge/admit diagnosis, radiology results, the need for outpatient follow up, a dentist, to return to the emergency department if symptoms worsen or persist or if there are any questions or concerns that arise at home. Response to treatment: the patient's symptoms have markedly improved after treatment, and as a result, I will discharge patient. 08/10 16:36 Order name: XRAY Hand RIGHT 3 View; Complete Time: 17:31 cp 08/10 16:36 Order name: CT Head Brain wo Cont; Complete Time: 17:43 cp 08/10 16:36 Order name: CT Facial Bones W/O Con; Complete Time: 17:43 cp 08/10 16:45 Order name: Wound Care; Complete Time: 16:45 cp 08/10 17:31 Order name: Dressing - Wound; Complete Time: 17:32 cp 08/10 17:31 Order name: Gloves, Sterile; Complete Time: 17:32 cp 08/10 17:31 Order name: Setup Suture Tray; Complete Time: 17:32 cp 08/10 17:31 Order name: Dermabond; Complete Time: 17:39 cp 08/10 17:32 Order name: Dermabond; Complete Time: 17:32 cp 08/10 18:04 Order name: Wound dressing; Complete Time: 18:09 cp Administered Medications: 16:44 Drug: Tetanus-Diphtheria Toxoid IM Adult 0.5 ml IM once; Provide Vaccine Information mb9 Statement (VIS). 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 Kelley} Volume: 5 ml; Route: Infiltration; 18:09 Drug: Clindamycin PO 300 mg PO once Route: PO; ld1 18:09 Drug: Ibuprofen PO 800 mg PO once Route: PO; ld1 18:09 Drug: HYDROcodone-acetaminophen PO 5 mg-325 mg 1 tabs PO once Route: PO; ld1 Disposition Summary: 08/10/23 18:22 Discharge Ordered Notes: Location: Home cp Problem: new cp Symptoms: have improved cp Condition: Stable cp Diagnosis - Laceration without foreign body of lip cp - Laceration without foreign body of right hand, initial encounter cp - Fracture of tooth (traumatic) - left mandibular incisor (08/10/23 18:27) cp - Laceration without foreign body of other part of head, initial encounter cp Followup: cp - With: Alberto Guadalupe DDS - When: 2 - 3 days - Reason: dental injury Discharge Instructions: - Discharge Summary Sheet cp - Laceration Care, Adult cp - Nonsutured Laceration Care cp - Facial Laceration cp - Sutured Wound Care cp - Tooth Injuries cp Forms: - Medication Reconciliation Form cp - Thank You Letter cp - Antibiotic Education cp - Prescription Opioid Use cp - Patient Portal Instructions cp - Leadership Thank You Letter cp Prescriptions: - Clindamycin HCl 300 mg Oral Capsule - take 1 capsule ORAL route every 6 hours for 10 days; 40 capsule; Refills: 0, cp Product Selection Permitted - Ibuprofen 800 mg Oral Tablet - take 1 tablet ORAL route every 8 hours As needed take with food; 30 tablet; cp Refills: 0, Product Selection Permitted Signatures: Dispatcher [employer] EDMS Henrique Buchanan PA PA cp Arleth Krishna RN RN ld1 Zonia Cheney RN RN mb9 Prachi Araujo RN RN cm10 Corrections: (The following items were deleted from the chart) 18:27 18:26 Fracture of tooth (traumatic) - left incisor cp cp 08/11 18:14 08/10 16:40 Context of injury: resulted from a direct blow, cp cp
--- NOTE | 2023-08-10 18:23 | ER ---
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 Pt has laceration to left eyebrow, to tooth and knuckle on right hand. bleeding controlled at this time. no loc. pt reports pain to head. Coronavirus screen: Vaccine status: Patient reports being unvaccinated. Client denies travel out of the [place] in the last 14 days. Ebola Screen: Patient denies travel to an Ebola-affected area in the 21 days before illness onset. No symptoms or risks identified at this time. Initial Sepsis Screen: Does the patient meet any 2 criteria? No. Patient's initial sepsis screen is negative. Does the patient have a suspected source of infection? No. Patient's initial sepsis screen is negative. Risk Assessment: Do you want to hurt yourself or someone else? Patient reports no desire to harm self or others. Onset of symptoms was August 10, 2023. 16:33 Method Of Arrival: Ambulatory cm10 16:33 Acuity: MAUREEN 3 cm10 Triage Assessment: 16:37 General: Appears in no apparent distress. comfortable, Behavior is calm, cooperative. cm10 Pain: Complains of pain in head. Neuro: No deficits noted. Level of Consciousness is awake, alert, obeys commands, Oriented to person, place, time, situation. Respiratory: No deficits noted. Airway is patent Respiratory effort is even, unlabored, Respiratory pattern is regular, symmetrical. 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 - Social history:: Smoking status: Patient reports the use of cigarette tobacco products, smokes one pack cigarettes per day. Screenin:39 [facility] ED Fall Risk Assessment (Adult) History of falling in the last 3 months, ld1 including since admission No falls in past 3 months (0 pts). Abuse screen: Denies threats or abuse. Denies injuries from another. Nutritional screening: No deficits noted. Tuberculosis screening: No symptoms or risk factors identified. Assessment: 17:39 General: Appears in no apparent distress. comfortable, Behavior is calm, cooperative, ld1 appropriate for age. Pain: Complains of pain in face Pain does not radiate. Pain currently is 7 out of 10 on a pain scale. Quality of pain is described as throbbing. Neuro: Level of Consciousness is awake, alert, obeys commands, Oriented to person, place, time, situation. Cardiovascular: Capillary refill < 3 seconds Patient's skin is warm and dry. Respiratory: Airway is patent Respiratory effort is even, unlabored. GI: Abdomen is flat, non-distended. : No signs and/or symptoms were reported regarding the genitourinary system. EENT: Bottom middle tooth is loose and bleeding.. Derm: No signs and/or symptoms reported regarding the dermatologic system. Musculoskeletal: No signs and/or symptoms reported regarding the musculoskeletal system. Injury Description: Laceration sustained to forehead and dorsal aspect of proximal phalanx of right middle finger. Vital Signs: 16:33 BP 125 / 81; Pulse 91; Resp 18; Temp 97.9; Pulse Ox 98% ; Weight 86.18 kg; Height 5 ft. cm10 6 in. ; Pain 7/10; 17:39 BP 109 / 76; Pulse 81; Resp 18; Pulse Ox 98% on R/A; ld1 16:33 Body Mass Index 30.67 (86.18 kg, 167.64 cm) cm10 16:33 Pain Scale: Adult cm10 [place] Coma Score: 16:33 Eye Response: spontaneous(4). Motor Response: obeys commands(6). Verbal Response: cm10 oriented(5). Total: 15. 16:40 Eye Response: spontaneous(4). Motor Response: obeys commands(6). Verbal Response: cp oriented(5). Total: 15. ED Course: 16:26 Patient arrived in ED. mr 16:30 Henrique Buchanan PA is PHCP. cp 16:30 Ankur Echols MD is Attending Physician. cp 16:36 Triage completed. cm10 16:36 Arm band placed on Patient placed in an exam room, on a stretcher. cm10 16:40 Arleth Krishna, RN is Primary Nurse. ld1 17:13 XRAY Hand RIGHT 3 View In Process Unspecified. EDMS 17:13 CT Head Brain wo Cont In Process Unspecified. EDMS 17:17 CT Facial Bones W/O Con In Process Unspecified. EDMS 17:39 Patient has correct armband on for positive identification. Placed in gown. Bed in low ld1 position. Call light in reach. Side rails up X2. riveter on. Pulse ox on. NIBP on. Door closed. Noise minimized. Warm blanket given. 17:39 Assist provider with laceration repair on forehead using Dermabond. Performed by Arleth Krishna RN. 17:39 Assist provider with laceration repair on dorsal aspect of proximal phalanx of right ld1 middle finger using sutures. Set up tray. Performed by Henrique ACUNA. Patient did not have IV access during this emergency room visit. 17:43 Henrique Díaz MD is Attending Physician. cp 18:21 Alberto Guadalupe DDS is Referral Physician. cp Administered Medications: 16:44 Drug: Tetanus-Diphtheria Toxoid IM Adult 0.5 ml IM once; Provide Vaccine Information mb9 Statement (VIS). {Floor Person: [employer]; Exp: Sun Mar 08 2025; Lot #: [id number]; Series: 1 of 1; Patient Consent: Obtained; Date/Time: ; Source Name: Noe Douglas; Source Relationship: Self; Address Information: [address], [place] [address]; ; Education: Provided; VIS Presented Date: ; VIS Publication: Tetanus/Diphtheria (Td) Vaccine VIS 02/27/2017 (historic); Vaccine Funding Eligibility: [employer] eligible Uninsured} Route: IM; Site: right deltoid; 17:39 Drug: Lidocaine Infiltration (1 %) 5 ml 5 ml Infiltration once; to bedside {Note: ld1 Administered by KALPANA Benson.} Volume: 5 ml; Route: Infiltration; 18:09 Drug: Clindamycin PO 300 mg PO once Route: PO; ld1 18:09 Drug: Ibuprofen PO 800 mg PO once Route: PO; ld1 18:09 Drug: HYDROcodone-acetaminophen PO 5 mg-325 mg 1 tabs PO once Route: PO; ld1 Medication: 17:39 Vaccine Information Statement (VIS) provided today. Questions and/or concerns ld1 addressed. VIS edition date: August 10, 2023. Outcome: 18:22 Discharge ordered by MD. cp 18:41 Discharged to home ambulatory, with family, ld1 18:41 Condition: stable 18:41 Discharge instructions given to patient, family, Instructed on discharge instructions, follow up and referral plans. medication usage, Demonstrated understanding of instructions, follow-up care, medications, Prescriptions given X 2, 18:41 Patient left the ED. ld1 Signatures: Dispatcher [employer] EDMS Zonia Amaro, Henrique Oates PA PA cp Sims, Lauren, RN RN ld1 Zonia Cheney, RN RN mb9 Prachi Araujo RN RN cm10
[2023-08-10 18:46] VITALS: TEMP 97.9; O2SAT 98
[2023-08-10 18:47] VITALS: BP 109/76
== END 2023-08-10 18:41 | disposition home or self-care (01) ==
LOC: ER 16:24
PROC: 0HQFXZZ Repair Right Hand Skin, External Approach (ICD-10-PCS; principal; 2023-08-10)
DX: S01.511A Laceration without foreign body of lip, initial encounter (principal); S61.411A Laceration without foreign body of right hand, initial encounter; S02.5XXA Fracture of tooth (traumatic), initial encounter for closed fracture; Z23 Encounter for immunization; F17.210 Nicotine dependence, cigarettes, uncomplicated
CPT/HCPCS: 70450; 70486; 76377; 90471; 99285; J2001

== ENCOUNTER 2025-08-10 08:13 | Emergency (ER) | payer SELFPAY ==
--- OUTSIDE RECORDS SUMMARY | 2025-08-10 08:18 | XMS REPORT | Continuity of Care Document ---
Author Name Unknown Address [address] [facility] [address] [place] [address] [facility] Address [address] [place] [address] Care Team Providers Care Planner Name Role Phone PCP, PATIENT DOES NOT HAVE A Primary Care Physic franklyn Unavailable DOMINIQUE FOY Attending Clinician Unavailab Dominique Nam DO Attending Clinician [phone] Fatuma NICE Attending Clinician Unavailable Fatuma Gaytan Attending Clinician [phone] Doctor Unassigned, [place] Attending Clinician U TIERRA Rebollar Attending Clinician Unavailable LEEANNE AMARO Attending Clinician Unavailable Leeanne Anne Attending Clinician [phone] Vesta Miramontes MD Attending Clinician [phone] DOMINIQUE FOY Admitting Clinician Unavailab Fatuma Hollingsworth Admitting Clinician Unavailable Payers Payer Name Policy Type Policy Number Effective Date Expirati on Date Source [facility] [id number] 2023 00:00:00 MEDICAID PENDING PENDING 2021 00:00:00 Problems Condition Name Condition Details Condition Category Status Onset Date Resolution Date Last Treatment Date Treating Clinician Comments Source Type 2 diabetes mellitus with other specified complicati on, without long-term current use of insulin Type 2 diabetes mellitus with other specified complicati on, without long-term current use of insulin Disease Active 12-10 00:00: 00 [facility] Leg swelling Leg swelling Disease Active 12-10 00:00: 00 [facility] Anemia, unspecifie d type Anemia, unspecifie d type Disease Active 12-10 00:00: 00 [facility] No known active problems No known active problems Disease [facility] Allergies, Adverse Reactions, Alerts Allergy Name Allergy Type Status Severity Reaction(s) Onset Date Inactive Date Treating Clinician Comments Source NO KNOWN ALLERGIE S Drug Class Active [facility] Social History Social Habit Start Date Stop Date Quantity Comments Source History SDOH Alcohol Comment [place] [facility] Sexual orientation [facility] Exposure to SARS-CoV-2 (event) Not sure [facility] History of tobacco use Cigarette Smoker [facility] History SDOH Alcohol Std Drinks [facility] History SDOH Alcohol Binge [facility] Alcohol intake 2023-12-10 00:00:00 2023-12-10 00:00:00 Lifetime non-drinker (finding) [facility] History of Social function 2021-07-05 00:00:00 2021-07-05 00:00:00 [facility] Cigarettes smoked current (pack per day) - Reported 2021-07-05 00:00:00 2021-07-05 00:00:00 [facility] Tobacco use and exposure 2021-07-05 00:00:00 2021-07-05 00:00:00 Smokeless tobacco non-user [facility] History SDOH Alcohol Frequency 2021-07-05 00:00:00 2021-07-05 00:00:00 1 [facility] Tobacco Comment 2021-07-05 00:00:00 2021-07-05 00:00:00 pt smokes 3 packs in a week [facility] Sex Ass[birth year] At 1965 00:00:00 1965 00:00:00 [facility] Smoking Status Start Date Stop Date Source Smokes tobacco daily 2021-07-05 00:00:00 [facility] Unknown if ever smoked [facility] Medications Ordered Medication Name Filled Medication Name Start Date Stop Date Current Medication? Ordering Clinician Indication Dosage Frequency Signature (SIG) Comments Components Source NaCl 0.9% (NS) bolus infusion 500 mL 12-10 21:00: 00 12-10 21:29 :00 No 500mL at 999 mL/hr, 500 mL, IV Infusion, ONCE, 1 dose, On Sun12/10/23 at 1500, STAT [facility] metformin HCl (METFORMIN ORAL) 12-10 14:58: 02 12-10 00:00 :00 No Take by mouth. [facility] metFORMIN 1,000 mg tablet 12-10 00:00: 00 Yes [id number] 1000mg Take 1 tablet by mouth 2 (two) times daily with meals. [facility] tamsulosin 0.4 mg 24 hr capsule 12-10 00:00: 00 Yes [id number] .4mg Take 1 capsule by mouth at bedtime. [facility] pantoprazol e 20 mg EC tablet 12-10 00:00: 00 Yes [id number] 20mg Take 1 tablet by mouth daily. [facility] magnesium sulfate in water 2 gram/50 mL (4 %) infusion 2 g 12-06 20:45: 00 12-06 22:55 :00 No 2g 2 g, IV Piggyback, ONCE, 1 dose, On Sun12/06/21 at 1445, Routine [facility] NaCl 0.9% (NS) bolus infusion 1,000 mL 12-06 19:30: 00 12-06 20:30 :00 No 1000mL at 999 mL/hr, 1,000 mL, IV Infusion, ONCE, 1 dose, On Sun12/06/21 at 1330, STAT [facility] ibuprofen 600 mg tablet 2020-11 00:00: 00 Yes [id number] 600mg Take 1 tablet by mouth every 6 (six) hours as needed for Pain (scale 4-6). [facility] gabapentin 100 mg capsule 2020-11 00:00: 00 Yes [id number] 100mg Take 1 capsule by mouth 3 (three) times daily. [facility] metformin HCl (METFORMIN ORAL) 07-05 15:40: 07 Yes Take by mouth. [facility] metformin HCl (METFORMIN ORAL) 07-05 10:40: 07 Yes Take by mouth. [facility] tamsulosin 0.4 mg 24 hr capsule 07-05 00:00: 00 12-10 00:00 :00 No [id number] .4mg Take 1 capsule by mouth daily. 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 [facility] ondansetron (ZOFRAN) 4 mg tablet 06-30 00:00: 00 Yes [id number] 4mg Take 1 tablet by mouth every 8 (eight) hours as needed for Nausea and Vomiting (N/V). [facility] tamsulosin 0.4 mg 24 hr capsule 06-30 00:00: 00 12-10 00:00 :00 No [id number] .4mg Take 1 capsule by mouth at bedtime. [facility] Vital Signs Vital Name Observation Time Observation Value Comments S ource Systolic blood pressure 2023-12-10 21:21:06 110 mm[Hg] [facility] Diastolic blood pressure 2023-12-10 21:21:06 60 mm[Hg] [facility] Heart rate 2023-12-10 21:21:06 80 /min [facility] Respiratory rate 2023-12-10 21:21:06 14 /min [facility] Oxygen saturation in Arterial blood by Pulse oximetry 2023-12-10 21:21:06 100 /min [facility] Body temperature 2023-12-10 21:12:00 37.06 Nicole [facility] Body height 2023-12-10 16:46:00 165.1 cm [facility] Body weight 2023-12-10 16:46:00 84.823 kg [facility] BMI 2023-12-10 16:46:00 31.12 kg/m2 [facility] Systolic blood pressure 2021-12-06 23:00:00 110 mm[Hg] [facility] Diastolic blood pressure 2021-12-06 23:00:00 65 mm[Hg] [facility] Heart rate 2021-12-06 23:00:00 84 /min [facility] Respiratory rate 2021-12-06 23:00:00 17 /min [facility] Oxygen saturation in Arterial blood by Pulse oximetry 2021-12-06 23:00:00 98 /min [facility] Body temperature 2021-12-06 17:49:00 36.78 Nicole [facility] Body weight 2021-12-06 17:49:00 97.977 kg [facility] BMI 2021-12-06 17:49:00 34.86 kg/m2 [facility] Systolic blood pressure 2021-08-29 16:00:00 108 mm[Hg] [facility] Diastolic blood pressure 2021-08-29 16:00:00 63 mm[Hg] [facility] Heart rate 2021-08-29 16:00:00 75 /min [facility] Body temperature 2021-08-29 15:00:00 36.61 Nicole [facility] Respiratory rate 2021-08-29 15:00:00 20 /min [facility] Body weight 2021-08-29 15:00:00 98.3 kg [facility] BMI 2021-08-29 15:00:00 34.98 kg/m2 [facility] Oxygen saturation in Arterial blood by Pulse oximetry 2021-08-29 15:00:00 100 /min [facility] Systolic blood pressure 2021-07-05 15:06:00 107 mm[Hg] [facility] Diastolic blood pressure 2021-07-05 15:06:00 72 mm[Hg] [facility] Heart rate 2021-07-05 15:06:00 88 /min [facility] Body temperature 2021-07-05 15:06:00 35.5 Nicole [facility] Respiratory rate 2021-07-05 15:06:00 20 /min [facility] Body height 2021-07-05 15:06:00 167.6 cm [facility] Body weight 2021-07-05 15:06:00 98.793 kg [facility] BMI 2021-07-05 15:06:00 35.15 kg/m2 [facility] Oxygen saturation in Arterial blood by Pulse oximetry 2021-07-05 15:06:00 96 /min [facility] Systolic blood pressure 2021-06-30 10:00:00 138 mm[Hg] [facility] Diastolic blood pressure 2021-06-30 10:00:00 91 mm[Hg] [facility] Heart rate 2021-06-30 10:00:00 84 /min [facility] Respiratory rate 2021-06-30 10:00:00 17 /min [facility] Oxygen saturation in Arterial blood by Pulse oximetry 2021-06-30 10:00:00 98 /min [facility] Body temperature 2021-06-30 08:57:00 37.28 Nicole [facility] Body weight 2021-06-30 08:57:00 98.884 kg [facility] Procedures Procedure Date / Time Performed Performing Clinician Source BASIC METABOLIC PANEL (NA, K, CL, CO2, GLUCOSE, BUN, CREATININE, CA) 2023-12-10 18:35:00 Dominique Foy [facility] CBC WITH DIFF 2023-12-10 18:35:00 Dominique Foy [facility] GLYCOSYLATED HEMOGLOBIN (A1C) 2023-12-10 18:35:00 Dominique Foy [facility] N-TERMINAL PRO-BNP 2023-12-10 18:35:00 Annie Foy [facility] XR CHEST 2 VW 2023-12-10 18:28:40 Dominique Foy [facility] ASSIGNMENT OF BENEFITS 2023-12-10 18:25:13 Docto r Unassigned, [place] [facility] CONSENT/REFUSAL FOR DIAGNOSIS AND TREATMENT 2023-12-10 16:38:00 Doctor Unassigned, [place] [facility] POCT GLUCOSE(AGE >30DAYS) 2021-12-06 21:21:00 Fatuma Nice [facility] POCT GLUCOSE (AUTOMATED) 2021-12-06 21:19:00 Fatuma Nice [facility] TROPONIN I 2021-12-06 21:18:00 Fatuma Nice [facility] LACTIC ACID WHOLE BLOOD 2021-12-06 21:17:00 Fatuma Nice [facility] XR ABDOMEN 2 2021-12-06 20:15:21 Fatuma Nice [facility] XR CHEST 1 VW 2021-12-06 18:36:53 Fatuma Nice [facility] LIPASE 2021-12-06 18:05:00 Fatuma Nice [facility] MAGNESIUM 2021-12-06 18:05:00 Fatuma Nice [facility] TROPONIN I 2021-12-06 18:05:00 Fatuma Nice [facility] COMP. METABOLIC PANEL ([id number]) 2021-12-06 18:05:00 Fatuma Nice [facility] CBC WITH DIFF 2021-12-06 18:05:00 Fatuma Nice [facility] PROTHROMBIN TIME / INR 2021-12-06 18:05:00 Fatuma Nice [facility] ACTIVATED PARTIAL THRMPLAS ANTONI 2021-12-06 18:05:00 Fatuma Nice [facility] URINALYSIS 2021-12-06 18:05:00 Fatuma Nice [facility] N-TERMINAL PRO-BNP 2021-12-06 18:05:00 Fatuma Nice [facility] LACTIC ACID WHOLE BLOOD 2021-12-06 18:05:00 Fatuma Nice [facility] COVID-19 (ID NOW RAPID TESTING) 2021-12-06 18:05:00 Fatuma Nice [facility] POCT GLUCOSE (AUTOMATED) 2021-12-06 17:52:00 Doctor Unassigned, [place] [facility] NOTICE OF PRIVACY PRACTICES 2021-12-06 17:44:25 Doctor Unassigned, [place] [facility] CONSENT/REFUSAL FOR DIAGNOSIS AND TREATMENT 2021-12-06 17:42:32 Doctor Unassigned, [place] [facility] MAGNESIUM 2021-08-29 15:11:00 Fatuma Nice [facility] COMP. METABOLIC PANEL ([id number]) 2021-08-29 15:11:00 Fatuma Nice [facility] CBC WITH DIFF 2021-08-29 15:11:00 Fatuma Nice [facility] URINALYSIS 2021-08-29 15:11:00 Fatuma Nice [facility] POCT URINALYSIS AUTO 2021-07-05 15:17:00 Leeanne Amaro [facility] CT ABDOMEN PELVIS WO CONTRAST 2021-06-30 09:21:32 Vesta Miramontes [facility] COMP. METABOLIC PANEL (34408) 2021-06-30 09:18:00 Vesta Miramontes [facility] CBC WITH DIFF 2021-06-30 09:18:00 Vesta Miramontes [facility] URINALYSIS 2021-06-30 09:18:00 Vesta Miramontes [facility] NOTICE OF PRIVACY PRACTICES 2021-06-30 08:35:20 Doctor Unassigned, [place] [facility] CONSENT/REFUSAL FOR DIAGNOSIS AND TREATMENT 2021-06-30 08:35:02 Doctor Unassigned, [place] [facility] Encounters Start Date/Time End Date/Time Encounter Type Admission Type Attending [facility] Facility Care Department Encounter ID Source 2021-09-20 05:42:27 Emergency [facility] [id number] [facility] 2023-12-19 08:13:33 2023-12-19 08:13:33 Outpatient [facility] [id number] 2023-12-10 10:50:00 2023-12-10 15:33:00 Emergency X DOMINIQUE FOY [facility] ERT [id number] [facility] 2023-12-10 10:50:00 2023-12-10 15:33:00 Emergency Dominique Foy [facility] [id number] [facility] 2023-08-07 14:56:11 2023-08-07 14:56:11 Outpatient [facility] [id number] 2023-06-04 09:47:52 2023-06-04 09:47:52 Outpatient [facility] [id number] 2021-12-06 12:14:00 2021-12-06 17:02:00 Emergency X Fatuma NICE [facility] ERT [id number] [facility] 2021-12-06 12:14:00 2021-12-06 17:02:00 Emergency Fatuma Nice [facility] [id number] [facility] 2021-12-06 00:00:00 2021-12-06 00:00:00 Orders Only Doctor Unassigned, [place] [facility] [id number] [id number] [id number] [id number] [facility] 2021-08-29 10:02:00 2021-08-29 11:33:00 Emergency Fatuma Nice [facility] [id number] [id number] [id number] [id number] [facility] 2021-08-01 08:30:00 2021-08-01 08:30:00 Outpatient R TIERRA LIU [facility] [id number] [facility] 2021-07-05 10:00:00 2021-07-05 10:35:59 Outpatient R LEEANNE AMARO [facility] [id number] [facility] 2021-07-05 09:55:24 2021-07-05 10:35:59 Office Visit Leeanne Amaro [facility] [id number] [id number] [id number] [facility] 2021-06-30 03:46:00 2021-06-30 05:59:00 Emergency Vesta Miramontes [facility] [id number] [id number] [facility] 2021-06-30 03:34:00 2021-06-30 03:34:00 Emergency X [facility] ERT [id number] [facility] Results Test Description Test Time Test Comments Results Result Co mments Source VITAMIN D, 25 [id number] 11:17:00* Test Item Value Reference Range Interpretation Comme nts VITAMIN D, 25 OH (test code = 4958) 18 NG/ML SEE BELOW L EFFECTIVE 2022, PLEASE NOTE NEW METHODOLOGY IS ELECTROCHEMILUMINESCENCE BINDING ASSAY. NOTE: 25-HYDROXYVITAMIN D ASSAY INCLUDES 25-HYDROXYVITAMIN D2 AND D3. INTERPRETIVE RANGES PEDIATRIC (<17 YEARS) . . . . . . . . . . . NG/ML 20-100ADULT: INSUFFICIENT . . . . . . . . . . . . . . NG/ML <20 SUBOPTIMAL . . . . . . . . . . . . . . . NG/ML 20-29 OPTIMAL . . . . . . . . . . . . . . . . . NG/ML 30-100 UNLESS OTHERWISE INDICATED, ALL TESTING PERFORMED AT [facility] [employer] [address] [place] [address] GAS OPERATION MANAGER: JONNY BIRD M.D. [place] NUMBER [id number] [facility] [place]. [id number] XR CHEST 2 [id number] 18:50:52EXAM: XR CHEST 2 VW COMPARISON: 12/06/2021 HISTORY: sob FINDINGS: Lungs: The lungs are well expandedand clear. No focal opacity. No pleuralabnormality. Heart/Mediastinum: The cardiomediastinal silhoue tte is unremarkable. Bones and soft tissues: No osseous lesions visualized. [facility] [id number] 21:55:19* Test Item Value Reference Range Interpretation Comments TROPONIN I (test code = 6942019459) 0.001 ng/mL See_Comment [Automated message] The system which generated this result transmitted reference range: <=0.034. The reference range was not used to interpret this result as normal/abnormal. TRICE (test code = TRICE) Reference (Normal) [...] to patient's use of biotin. Lab Interpretation (test code = 11710-4) Normal [facility] Whole [id number] 21:36:12* Test Item Value Reference Range Interpretation Comme nts LACTIC ACID (test code = 4421791501) 2.33 mmol/L 0.50-2.20 H Lab Interpretation (test cod e = 91477-4) Abnormal [facility] GLUCOSE (AUTOMATED)2021-12-06 21:21:46* Test Item Value Reference Range Interpretation Comme nts POCT GLU (test code = 2864784264) 284 mg/dL 70-110 H Lab Interpretation (test cod e = 60567-7) Abnormal [facility] GLUCOSE(AGE >30DAYS)2021-12-06 21:21:00* Test Item Value Reference Range Interpretation Comme nts POCT Glu (age>30days) (test code = 3342) 284 mg/dL 70-110 A Lab Interpretation (test cod e = 23374-9) Abnormal [facility] [id number] 19:29:43* Test Item Value Reference Range Interpretation Comme nts NT-proBNP (test code = 3074695918) <11 See_Comment [Automated message] The system which generated this result transmitted reference range: <=125 pg/mL. The reference range was not used to interpret this result as normal/abnormal. TRICE (test code = TRICE) Biotin has been reported to cause a negative bias, interpret results relative to patient's use of biotin. Lab Interpretation (test code = 42052-3) Normal [facility] [id number] 19:12:18* Test Item Value Reference Range Interpretation Comments TROPONIN I (test code = 6758546936) 0.003 ng/mL See_Comment [Automated message] The system which generated this result transmitted reference range: <=0.034. The reference range was not used to interpret this result as normal/abnormal. TRICE (test code = TRICE) Reference (Normal) [...] to patient's use of biotin. Lab Interpretation (test code = 61707-3) Normal [facility]2022-01-18 19:02:11* Test Item Value Reference Range Interpretation Comme nts MAGNESIUM (test code = 4330457167) 1.6 mg/dL 1.7-2.4 L Lab Interpretation (test cod e = 84007-8) Abnormal [facility] MET[facility]OLIC PANEL (90482)2021-12-06 19:01:34* Test Item Value Reference Range Interpretation Comme nts NA (test code = 9584781582) 132 mmol/L 135-145 L K (test code = 2369151011) 4.8 mmol/L 3.5-5.0 CL (test code = 9787240959) 97 mmol/L 98-108 L CO2 TOTAL (test code = 0278495908) 27 mmol/L 23-31 AGAP (test code = 4304065873) 2-16 BUN (test code = 6513364589) 9 mg/dL 7-23 GLUCOSE (test code = 4017845352) 351 mg/dL 70-110 H CREATININE (test code = 6868611266) 0.65 mg/dL 0.60-1.25 TOTAL BILI (test code = 6857975839) 1.1 mg/dL 0.1-1.1 CALCIUM (test code = 3685728960) 8.5 mg/dL 8.6-10.6 L T PROTEIN (test code = 0931714873) 7.6 g/dL 6.3-8.2 ALBUMIN (test code = 0674957964) 4.4 g/dL 3.5-5.0 ALK PHOS (test code = 2749710534) 166 U/L 34-122 H ALTv (test code = 1742-6) 38 U/L 5-50 AST(SGOT) (test code = 4550476944) 44 U/L 13-40 H eGFR (test code = 8732288764) mL/min/1.73m2 TRICE (test code = TRICE) Association of [...] or abnormalities in imaging tests). Lab Interpretation (test code = 61319-6) Abnormal [facility], [id number] 19:01:34* Test Item Value Reference Range Interpretation Comme [facility] LIPASE (test code = 6932372554) 108 U/L 0-220 Lab Interpretation (test cod e = 60718-0) Normal [facility]2022-01-18 18:59:33* Test Item Value Reference Range Interpretation Comme [facility] APTT Patient (test code = 3173-2) See_Comment [Automated message] The system which generated this result transmitted reference range: 23 - 38 Seconds. The reference range was not used to interpret this result as normal/abnormal. TRICE (test code = TRICE) The [facility] patient population mean normal value for aPTT is 30 seconds. Lab Interpretation (test code = 16610-1) Normal [facility] / [id number] 18:57:31* Test Item Value Reference Range Interpretation Comme nts PROTIME PATIENT (test code = 5964-2) See_Comment [Automated messa ge] The system which generated this result transmitted reference range: 12.0 - 14.7 Seconds. The reference range was not used to interpret this result as normal/abnormal. INR (test code = 6301-6) Normal INR <1.1; Warfarin Therapeutic range 2.0 to 3.0 or 2.5 to 3.5, depending upon the indications. Lab Interpretation (test code = 38133-5) Normal [facility] WITH [id number] 18:55:14* Test Item Value Reference Range Interpretation Comme nts WBC (test code = 6690-2) See_Comment [Automated messa ge] The system which generated this result transmitted reference range: 4.20 - 10.70 10*3/?L. The reference range was not used to interpret this result as normal/abnormal. RBC (test code = 789-8) See_Comment L [Automated messa ge] The system which generated this result transmitted reference range: 4.26 - 5.52 10*6/?L. The reference range was not used to interpret this result as normal/abnormal. HGB (test code = 718-7) 12.7 g/dL 12.2-16.4 HCT (test code = 4544-3) 35.0 % 38.4-49.3 L MCV (test code = 787-2) 105.7 fL 81.7-95.6 H MCH (test code = 785-6) 38.4 pg 26.1-32.7 H MCHC (test code = 786-4) 36.3 g/dL 31.2-35.0 H RDW-SD (test code = 36342-7) 57.6 fL 38.5-51.6 H RDW-CV (test code = 788-0) 14.9 % 12.1-15.4 PLT (test code = 777-3) See_Comment [Automated messa ge] The system which generated this result transmitted reference range: 150 - 328 10*3/?L. The reference range was not used to interpret this result as normal/abnormal. MPV (test code = 29367-3) 11.3 fL 9.8-13.0 NRBC/100 WBC (test code = 7836528147) See_Comment [Automated me ssage] The system which generated this result transmitted reference range: 0.0 - 10.0 /100 WBCs. The reference range was not used to interpret this result as normal/abnormal. NRBC x10^3 (test code = 9302220950) <0.01 See_Comment [Automated messa ge] The system which generated this result transmitted reference range: 10*3/?L. The reference range was not used to interpret this result as normal/abnormal. GRAN MAT (NEUT) % (test code = 770-8) 50.3 % IMM GRAN % (test code = 9580165805) 0.10 % LYMPH % (test code = 736-9) 40.0 % MONO % (test code = 5905-5) 7.3 % EOS % (test code = 713-8) 1.9 % BASO % (test code = 706-2) 0.4 % GRAN MAT x10^3(ANC) (test code = 1350620557) 3.35 10*3/uL 1.99-6.95 IMM GRAN x10^3 (test code = 2013460565) <0.03 0.00-0.06 LYMPH x10^3 (test code = 731-0) 2.67 10*3/uL 1.09-3.23 MONO x10^3 (test code = 742-7) 0.49 10*3/uL 0.36-1.02 EOS x10^3 (test code = 711-2) 0.13 10*3/uL 0.06-0.53 BASO x10^3 (test code = 704-7) 0.03 10*3/uL 0.01-0.09 Lab Interpretation (test code = 93961-9) Abnormal [facility] GLU[facility] (AUTOMATED)2021-12-06 17:54:25* Test Item Value Reference Range Interpretation Comme nts POCT GLU (test code = 1265705200) 340 mg/dL 70-110 H Notified Provide r Lab Interpretation (test code = 97835-8) [facility] Test Item Value Reference Range Interpretation Comme nts MAGNESIUM (test code = 9680893781) 1.7 mg/dL 1.7-2.4 Lab Interpretation (test cod e = 06534-3) Normal [facility]. METABOLIC PANEL ([id number])2021-08-29 16:02:23* Test Item Value Reference Range Interpretation Comme nts NA (test code = 2511103754) 138 mmol/L 135-145 K (test code = 5733699530) 5.5 mmol/L 3.5-5.0 H CL (test code = 3118895884) 103 mmol/L 98-108 CO2 TOTAL (test code = 8970588964) 28 mmol/L 23-31 AGAP (test code = 4017201699) 2-16 BUN (test code = 4175209975) 12 mg/dL 7-23 GLUCOSE (test code = 7679617022) 226 mg/dL 70-110 H CREATININE (test code = 0895979353) 0.76 mg/dL 0.60-1.25 TOTAL BILI (test code = 0814250041) 1.0 mg/dL 0.1-1.1 CALCIUM (test code = 2283790934) 9.2 mg/dL 8.6-10.6 T PROTEIN (test code = 4317391645) 7.6 g/dL 6.3-8.2 ALBUMIN (test code = 8969971163) 4.4 g/dL 3.5-5.0 ALK PHOS (test code = 0682320375) 116 U/L 34-122 ALTv (test code = 1742-6) 52 U/L 5-50 H AST(SGOT) (test code = 7154649513) 63 U/L 13-40 H eGFR (test code = 5858514474) mL/min/1.73m2 TRICE (test code = TRICE) Association of [...] or abnormalities in imaging tests). Lab Interpretation (test code = 68102-1) Abnormal [facility] WITH [id number] 15:22:03* Test Item Value Reference Range Interpretation Comme nts WBC (test code = 6690-2) See_Comment [[employer]] The system which generated this result transmitted reference range: 4.20 - 10.70 10*3/?L. The reference range was not used to interpret this result as normal/abnormal. RBC (test code = 789-8) See_Comment L [[employer]] The system which generated this result transmitted reference range: 4.26 - 5.52 10*6/?L. The reference range was not used to interpret this result as normal/abnormal. HGB (test code = 718-7) 12.9 g/dL 12.2-16.4 HCT (test code = 4544-3) 37.4 % 38.4-49.3 L MCV (test code = 787-2) 108.7 fL 81.7-95.6 H MCH (test code = 785-6) 37.5 pg 26.1-32.7 H MCHC (test code = 786-4) 34.5 g/dL 31.2-35.0 RDW-SD (test code = 95647-6) 54.6 fL 38.5-51.6 H RDW-CV (test code = 788-0) 13.6 % 12.1-15.4 PLT (test code = 777-3) See_Comment [Automated messa ge] The system which generated this result transmitted reference range: 150 - 328 10*3/?L. The reference range was not used to interpret this result as normal/abnormal. MPV (test code = 47257-5) 10.7 fL 9.8-13.0 NRBC/100 WBC (test code = 0368293635) See_Comment [Automated [employer] ssage] The system which generated this result transmitted reference range: 0.0 - 10.0 /100 WBCs. The reference range was not used to interpret this result as normal/abnormal. NRBC x10^3 (test code = 7950735402) <0.01 See_Comment [Automated messa ge] The system which generated this result transmitted reference range: 10*3/?L. The reference range was not used to interpret this result as normal/abnormal. GRAN MAT (NEUT) % (test code = 770-8) 48.3 % IMM GRAN % (test code = 2171782608) 0.20 % LYMPH % (test code = 736-9) 39.4 % MONO % (test code = 5905-5) 9.8 % EOS % (test code = 713-8) 2.0 % BASO % (test code = 706-2) 0.3 % GRAN MAT x10^3(ANC) (test code = 9149503303) 2.95 10*3/uL 1.99-6.95 IMM GRAN x10^3 (test code = 1517788266) <0.03 0.00-0.06 LYMPH x10^3 (test code = 731-0) 2.41 10*3/uL 1.09-3.23 MONO x10^3 (test code = 742-7) 0.60 10*3/uL 0.36-1.02 EOS x10^3 (test code = 711-2) 0.12 10*3/uL 0.06-0.53 BASO x10^3 (test code = 704-7) <0.03 0.01-0.09 Lab Interpretation (test code = 34633-9) Abnormal [facility] URINALYSIS, [id number] 15:18:00 * Test Item Value Reference Range Interpretation Comme nts POCT U SP GRAV (test code = 3255) 1.030 mg/dl 1.005-1.025 A POCT PH U (test code = 3254) 5.0 mg/dl 5-8 POCT U LEUK EST (test code = 3263) Negative Negative - Negative POCT U NIT (test code = 3262) Negative Negative - Negative POCT U PROT (test code = 3259) Trace Negative - Negative POCT U GLU (test code = 3256) Negative - Negative POCT U KETONE (test code = 3258) Trace Negative - Negative POCT U UROBILI (test code = 3260) 0.2 mg/dl 0.2-1 POCT U BILI (test code = 3261) Small Negative - Negative POCT U BLD (test code = 3257) Trace-intact Negative - Negative POCT U COLOR (test code = 3266) Dark yellow POCT U APPEAR (test code = 3267) clear Lab Interpretation (test code = 92458-8) Abnormal [facility] URINALYSIS, [id number] 15:18:00 * Test Item Value Reference Range Interpretation Comme nts POCT U SP GRAV (test code = 3255) 1.030 mg/dl 1.005-1.025 A POCT PH U (test code = 3254) 5.0 mg/dl 5-8 POCT U LEUK EST (test code = 3263) Negative Negative - Negative POCT U NIT (test code = 3262) Negative Negative - Negative POCT U PROT (test code = 3259) Trace Negative - Negative POCT U GLU (test code = 3256) Negative - Negative POCT U KETONE (test code = 3258) Trace Negative - Negative POCT U UROBILI (test code = 3260) 0.2 mg/dl 0.2-1 POCT U BILI (test code = 3261) Small Negative - Negative POCT U BLD (test code = 3257) Trace-intact Negative - Negative POCT U COLOR (test code = 3266) Dark yellow POCT U APPEAR (test code = 3267) clear Lab Interpretation (test code = 21083-0) [facility] [id number] 15:18:00 * Test Item Value Reference Range Interpretation Comme nts POCT U SP GRAV (test code = 3255) 1.030 mg/dl 1.005-1.025 A POCT PH U (test code = 3254) 5.0 mg/dl 5-8 POCT U LEUK EST (test code = 3263) Negative Negative - Negative POCT U NIT (test code = 3262) Negative Negative - Negative POCT U PROT (test code = 3259) Trace Negative - Negative POCT U GLU (test code = 3256) Negative - Negative POCT U KETONE (test code = 3258) Trace Negative - Negative POCT U UROBILI (test code = 3260) 0.2 mg/dl 0.2-1 POCT U BILI (test code = 3261) Small Negative - Negative POCT U BLD (test code = 3257) Trace-intact Negative - Negative POCT U COLOR (test code = 3266) Dark yellow POCT U APPEAR (test code = 3267) clear Lab Interpretation (test code = 73129-2) Abnormal [facility]. METABOLIC PANEL (30756)2021-06-30 09:56:51* Test Item Value Reference Range Interpretation Comme nts NA (test code = 9040951475) 134 mmol/L 135-145 L K (test code = 8083128195) 4.0 mmol/L 3.5-5.0 CL (test code = 7439179865) 102 mmol/L 98-108 CO2 TOTAL (test code = 3595352774) 24 mmol/L 23-31 AGAP (test code = 5737995704) 2-16 BUN (test code = 1369493999) 13 mg/dL 7-23 GLUCOSE (test code = 9033006066) 286 mg/dL 70-110 H CREATININE (test code = 6948305059) 0.77 mg/dL 0.60-1.25 TOTAL BILI (test code = 7391581573) 0.9 mg/dL 0.1-1.1 CALCIUM (test code = 4021313460) 9.3 mg/dL 8.6-10.6 T PROTEIN (test code = 7614094804) 7.3 g/dL 6.3-8.2 ALBUMIN (test code = 4081892863) 4.3 g/dL 3.5-5.0 ALK PHOS (test code = 2881228858) 156 U/L 34-122 H ALTv (test code = 1742-6) 54 U/L 5-50 H AST(SGOT) (test code = 9958594788) 51 U/L 13-40 H eGFR (test code = 7403071219) mL/min/1.73m2 TRICE (test code = TRICE) Association of [...] or abnormalities in imaging tests). Lab Interpretation (test code = 63742-7) [facility]47:51* Test Item Value Reference Range Interpretation Comme nts APPEARANCE (test code = 7885634512) Hazy Clear A COLOR (test code = 4708033291) Vivian Yellow A PH (test code = 3292293735) 4.8-8.0 SP GRAVITY (test code = 3545255221) 1.003-1.030 GLU U QUAL (test code = 2309327576) 50 mg/dL Normal A BLOOD (test code = 7044980441) 1+ Negative A KETONES (test code = 4765906289) 5 mg/dL Negative A PROTEIN (test code = 2887-8) 30 mg/dL Negative A UROBILIN (test code = 0809168953) 2.0 mg/dL Normal A BILIRUBIN (test code = 6633949776) Negative Negative NITRITE (test code = 5113227123) Negative Negative LEUK NEREYDA (test code = 5379548210) Negative Negative RBC/HPF (test code = 7444490751) See_Comment H [Automated messa ge] The system which generated this result transmitted reference range: 0 - 3 HPF. The reference range was not used to interpret this result as normal/abnormal. WBC/HPF (test code = 3092257301) See_Comment [Automated messa ge] The system which generated this result transmitted reference range: 0 - 5 HPF. The reference range was not used to interpret this result as normal/abnormal. BACTERIA (test code = 5913814982) Few Negative A MUCOUS (test code = 1094981903) Slight Negative LPF A SQ EPITH (test code = 2598819307) <1 HPF CA OXALATE (test code = 9540395354) See_Comment H [Automated messa ge] The system which generated this result transmitted reference range: <=1 HPF. The reference range was not used to interpret this result as normal/abnormal. HYAL CAST (test code = 4019250570) See_Comment H [Automated messa ge] The system which generated this result transmitted reference range: <=2 LPF. The reference range was not used to interpret this result as normal/abnormal. Lab Interpretation (test code = 39812-7) Abnormal [facility] WITH [id number] 09:37:51* Test Item Value Reference Range Interpretation Comme nts WBC (test code = 6690-2) See_Comment [Automated messa ge] The system which generated this result transmitted reference range: 4.20 - 10.70 10*3/?L. The reference range was not used to interpret this result as normal/abnormal. RBC (test code = 789-8) See_Comment L [Automated messa ge] The system which generated this result transmitted reference range: 4.26 - 5.52 10*6/?L. The reference range was not used to interpret this result as normal/abnormal. HGB (test code = 718-7) 12.5 g/dL 12.2-16.4 HCT (test code = 4544-3) 35.2 % 38.4-49.3 L MCV (test code = 787-2) 102.9 fL 81.7-95.6 H MCH (test code = 785-6) 36.5 pg 26.1-32.7 H MCHC (test code = 786-4) 35.5 g/dL 31.2-35.0 H RDW-SD (test code = 74861-5) 53.1 fL 38.5-51.6 H RDW-CV (test code = 788-0) 14.1 % 12.1-15.4 PLT (test code = 777-3) See_Comment [Automated messa ge] The system which generated this result transmitted reference range: 150 - 328 10*3/?L. The reference range was not used to interpret this result as normal/abnormal. MPV (test code = 18703-7) 10.8 fL 9.8-13.0 NRBC/100 WBC (test code = 6230272500) See_Comment [Automated [employer] ss[employer]] The system which generated this result transmitted reference range: 0.0 - 10.0 /100 WBCs. The reference range was not used to interpret this result as normal/abnormal. NRBC x10^3 (test code = 7963306071) <0.01 See_Comment [Automated messa ge] The system which generated this result transmitted reference range: 10*3/?L. The reference range was not used to interpret this result as normal/abnormal. GRAN MAT (NEUT) % (test code = 770-8) 57.5 % IMM GRAN % (test code = 6505847587) 0.30 % LYMPH % (test code = 736-9) 28.5 % MONO % (test code = 5905-5) 11.2 % EOS % (test code = 713-8) 1.9 % BASO % (test code = 706-2) 0.6 % GRAN MAT x10^3(ANC) (test code = 8484828841) 3.86 10*3/uL 1.99-6.95 IMM GRAN x10^3 (test code = 4198799023) <0.03 0.00-0.06 LYMPH x10^3 (test code = 731-0) 1.91 10*3/uL 1.09-3.23 MONO x10^3 (test code = 742-7) 0.75 10*3/uL 0.36-1.02 EOS x10^3 (test code = 711-2) 0.13 10*3/uL 0.06-0.53 BASO x10^3 (test code = 704-7) 0.04 10*3/uL 0.01-0.09 Lab Interpretation (test code = 60809-3) Abnormal [facility] Notes Date/Time Note Provider Source 2023-12-10 15:31:48 Written/verbal d/c instructions, e rx x3, all instructions translated, pt /spouse verbalize understanding, out of er no distress L [employer] O[employer] [facility] 2023-12-10 10:46:29 Heidi Rodriguez is a 58 year old male c/o swelling in legs for several months and ofeels off balance for several months, [facility] doesn't have a PCP, pt alert cheerful, states employer sent to ER Gutierrez RN [facility] 2023-12-10 10:35:00 [facility] Emergency Department Note Patient Name: Heidi Rodriguez Date of : 1965 58 year old male Treatment Room: [facility] ED [facility] JOJO/АННА Primary Care Physician: PATIENT DOES NOT HAVE A PCP Patient Escorted by: Family [5] Mode of Arrival: Personal means [1] EMS Treatment Prior to ED Arrival: Travel and Exposure Screening: Symptoms Does patient have any of these symptoms?: (not recorded) Exposure Screening Has patient had contact with someone with a communicable disease in the last month?: (not recorded) Diseases exposed to:: (not recorded) Is Patient ?: (not recorded) Exposure Date: (not recorded) Chief Complaint: Chief Complaint Patient presents with Edema History of Present Illness: HPI 58yo M with h/o DM on no meds presents today with leg swelling z 1 year that has been getting worse. He also noticed increased coughing that causes chest wall pain. He states his sugars have been high but he doesn't have a doctor in [place]. Past Medical History/Immunizations: Past Medical History: Diagnosis Date Anemia, unspecified type 12/10/2023 Arthritis Diabetes mellitus Hyperlipidemia Tetanus received in last 5 years: Unknown Allergies: No Known Allergies Past Social History: Tobacco Use Every Day; 3.00 packs/day; Types: Cigarettes Smokeless Tobacco: Never used smokeless tobacco. Comments: pt smokes 3 packs in a week Vaping Use Never used Alcohol Use Never. Drug Use Never. Sexual Activity Sexually active; Partners: Female; Control/Protection: None. Past Surgical History: Past Surgical History: Procedure Laterality Date FRACTURE SURGERY URETEROSCOPIC STONE MANIPULATION 2012 Review of Systems: Review of Systems Constitutional: Negative for activity change, chills, fever and weight loss. HENT: Negative for congestion, rhinorrhea, sore throat and trouble swallowing. Eyes: Negative for visual disturbance. Respiratory: Positive for cough. Negative for shortness of breath. Cardiovascular: Positive for leg swelling. Gastrointestinal: Negative for abdominal pain, nausea and vomiting. Genitourinary: Negative for dysuria, hematuria, decreased urine volume and difficulty urinating. Musculoskeletal: Negative for back pain and gait problem. Skin: Negative for rash and wound. Neurological: Negative for dizziness, syncope and weakness. Psychiatric/Behavioral: Negative for agitation and confusion. Endocrine: Negative for weight loss. Physical Exam: ED Triage Vitals [12/10/23 1046] Weight 84.8 kg (187 lb) Actual or estimated Height 1.651 m (5' 5") BP 106/65 Pulse 92 Resp 18 Temp 37.2 ?C (99 ?F) Temp source Oral SpO2 98 % Measured on Room air Physical Exam Vitals and nursing note reviewed. Constitutional: General: He is not in acute distress. Appearance: He is not diaphoretic. HENT: Head: Normocephalic and atraumatic. Eyes: Pupils: Pupils are equal, round, and reactive to light. Neck: Vascular: No JVD. Cardiovascular: Rate and Rhythm: Normal rate. Heart sounds: Normal heart sounds. No murmur heard. Pulmonary: Effort: Pulmonary effort is normal. No respiratory distress. Breath sounds: Normal breath sounds. Abdominal: General: There is no distension. Palpations: Abdomen is soft. Tenderness: There is no abdominal tenderness. Musculoskeletal: General: Normal range of motion. Cervical back: Neck supple. Right lower leg: Edema present. Left lower leg: Edema present. Skin: General: Skin is warm and dry. Neurological: Mental Status: He is alert and oriented to person, place, and time. Psychiatric: Behavior: Behavior normal. Radiology: XR CHEST 2 VW Final Result EXAM: XR CHEST 2 VW COMPARISON: 12/06/2021 HISTORY: sob FINDINGS: Lungs: The lungs are well expanded and clear. No focal opacity. No pleural abnormality. Heart/Mediastinum: The cardiomediastinal silhouette is unremarkable. Bones and soft tissues: No osseous lesions visualized. IMPRESSION Stable chest. No radiographic evidence of acute cardiopulmonary process. Lab Results: Lab Results CBC WITH DIFF - Abnormal Result Value Ref Range WBC 3.59 (*) 4.20 - 10.70 10*3/?L RBC 1.73 (*) 4.26 - 5.52 10*6/?L HGB 7.2 (*) 12.2 - 16.4 g/dL HCT 20.7 (*) 38.4 - 49.3 % MCV 119.7 (*) 81.7 - 95.6 fL MCH 41.6 (*) 26.1 - 32.7 pg MCHC 34.8 31.2 - 35.0 g/dL RDW-SD 65.0 (*) 38.5 - 51.6 fL RDW-CV 18.1 (*) 12.1 - 15.4 % PLT 126 (*) 150 - 328 10*3/?L MPV 12.7 9.8 - 13.0 fL NRBC/100 WBC 0.8 0.0 - 10.0 /100 WBCs NRBC x10 3 0.03 10*3/?L GRAN MAT (NEUT) % 32.2 % IMM GRAN % 0.60 % LYMPH % 59.1 % MONO % 4.5 % EOS % 3.3 % BASO % 0.3 % GRAN MAT x10 3 (ANC) 1.16 (*) 1.99 - 6.95 10*3/uL IMM GRAN x10 3 <0.03 0.00 - 0.06 10*3/uL LYMPH x10 3 2.12 1.09 - 3.23 10*3/uL MONO x10 3 0.16 (*) 0.36 - 1.02 10*3/uL EOS x10 3 0.12 0.06 - 0.53 10*3/uL BASO x10 3 <0.03 0.01 - 0.09 10*3/uL BASIC METABOLIC PANEL (NA, K, CL, CO2, GLUCOSE, BUN, CREATININE, CA) - Abnormal NA 137 135 - 145 mmol/L K 4.3 3.5 - 5.0 mmol/L CL 103 98 - 108 mmol/L CO2 TOTAL 26 23 - 31 mmol/L AGAP 8 2 - 16 BUN 12 7 - 23 mg/dL GLUCOSE 120 (*) 70 - 110 mg/dL CREATININE 0.55 (*) 0.60 - 1.25 mg/dL CALCIUM 8.4 (*) 8.6 - 10.6 mg/dL eGFR 115.6 mL/min/1.73m2 GLYCOSYLATED HEMOGLOBIN (A1C) - Abnormal HGB A1C 6.8 (*) 4.0 - 5.7 % N-TERMINAL PRO-BNP - Normal NT-proBNP 56 <=125 pg/mL EKG: If EKG completed, see Procedure Note. Orders and Treatments: Orders Placed This Encounter Procedures XR CHEST 2 VW N-Terminal Pro-Bnp Cbc with Diff Basic Metabolic Panel (NA, K, CL, CO2, GLUCOSE, BUN, CREATININE, CA) Glycosylated Hemoglobin (A1C) Orders Placed This Encounter Medications NaCl 0.9% (NS) bolus infusion 500 mL metFORMIN 1,000 mg tablet tamsulosin 0.4 mg 24 hr capsule First Provider Eval: ED Events Date/Time Event User Comments 12/10/231207 Medical Screening Begins DOMINIQUE FOY MD -- 12/10/23 120 First Provider Evaluation DOMINIQUE FOY MD -- ED COURSE Diagnosis/Impression as of 12/10/23 1522 Leg swelling Type 2 diabetes mellitus with other specified complication, without long-term current use of insulin Anemia, unspecified type History of melena Procedures: Procedures MDM: Medical Decision Making Patient reports not taking any medications Given metformin given A1c is 6.8 Refilled tamsulosin Bnp does not indicate heart failure But noted hg of 7.2 although MCV is large (unlikely to be iron deficiency) perhaps alcoholism Recommended no alcohol and no tylenol, pt reports no black stool and no bleeding. But on way he out reports he did have a few black stools and stats he doesn't drink alcohol a lot. He denies any pain or dizziness currently. Protonix added to prescription list and emphasized need to get a PCP. Referral for GI and PCP placed. Recommended no alcohol or spicy foods. STRONGLY recommended getting PCP for workup of anemia and if gets dizzy or worse please return. Problems Addressed: Anemia, unspecified type: undiagnosed new problem with uncertain prognosis Leg swelling: complicated acute illness or injury Type 2 diabetes mellitus with other specified complication, without long-term current use of insulin: chronic illness or injury with exacerbation, progression, or side effects of treatment Amount and/or Complexity of Data Reviewed Independent Historian: spouse Labs: ordered. Radiology: ordered. Risk Prescription drug management. Flowsheet Documentation: Scoring Tools: No data recorded Disposition/Condition: ED Disposition ED Disposition Disch - Home Condition Stable Comment -- Discharge Medications: Patient's Medications START taking these medications No medications on file CONTINUE taking these medications which have NOT CHANGED GABAPENTIN 100 MG CAPSULE Take 1 capsule by mouth 3 (three) times daily. IBUPROFEN 600 MG TABLET Take 1 tablet by mouth every 6 (six) hours as needed for Pain (scale 4-6). KETOROLAC 10 MG TABLET Take 1 tablet by mouth every 6 (six) hours as needed for Pain (scale 7-10). ONDANSETRON (ZOFRAN) 4 MG TABLET Take 1 tablet by mouth every 8 (eight) hours as needed for Nausea and Vomiting (N/V). START taking Modified Medications as Prescribed Modified Medication Previous Medication METFORMIN 1,000 MG TABLET metformin HCl (METFORMIN ORAL) Take 1 tablet by mouth 2 (two) times daily with meals. Take by mouth. TAMSULOSIN 0.4 MG 24 HR CAPSULE tamsulosin 0.4 mg 24 hr capsule Take 1 capsule by mouth at bedtime. Take 1 capsule by mouth at bedtime. STOP taking these medications TAMSULOSIN 0.4 MG 24 HR CAPSULE Take 1 capsule by mouth daily. Follow-up: Contact information for follow-up Pcp, Patient Does Not Have A Relationship: PCP - General [address] [place] [id number] Electronically signed by: Dominique Foy DO 12/10/23 150 Dominique Foy DO 12/10/23 1523 [facility]
[2025-08-10] MEDS ORDERED: TETRACAINE HCL 0.5% 4ML OPTH ONE (08:19)
[2025-08-10] MEDS ORDERED: FLUORESCEIN SODIUM 1 MG/WRAP ONE (08:19)
--- NOTE | 2025-08-10 08:54 | EDPHYS ---
Physician Documentation [facility] Name: Noe Douglas Age: 60 yrs Sex: Male : 1965 Arrival Date: 08/10/2025 Time: 08:13 Bed 11 Private MD: ED Physician Ankur Echols HPI: 08/10 08:50 This 60 yrs old Male presents to ER via Ambulatory with complaints of Foreign rn Body In Eye - metal shaving right. 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 Denies high-speed injury to eye, thinks it fell into the eye. Happened Sunday. Reports foreign body sensation and clear watery drainage. No vision changes or loss.. Historical: - Allergies: 08:26 No Known Allergies; ss - PMHx: 08:26 diabetes mellitus; Asthma; ss - PSHx: 08:26 R arm; ss - Infectious Disease History:: Denies. - Social history:: Smoking status: Patient reports the use of cigarette tobacco products, smokes one pack cigarettes per day. - Family history:: not pertinent. - Hospitalizations: : No recent hospitalization is reported. ROS: 08:50 Constitutional: Negative for fever, chills, and weight loss, Eyes: Positive for foreign rn body sensation in the right eye Exam: 08:50 Constitutional: This is a well developed, well nourished patient who is awake, alert, rn and in no acute distress. Eyes: Small metal foreign body identified on right cornea at 1 o'clock position, existing rust ring around it as well. No evidence of perforation. Pupil equally round and reactive to light. No hyphema. No hypopyon. No foreign body identified in either upper or lower lids after lids everted. Negative Kandi sign. Vital Signs: 08:25 BP 119 / 74; Pulse 83; Resp 16; Temp 98.4(O); Pulse Ox 100% on R/A; Height 5 ft. 5 in. ss ; Pain 10/10; 08:25 Pain Scale: Adult ss Procedures: 08:50 Foreign Body Removal: a piece of metal, from the right eye, by using a curette, The rn patient tolerated the removal well, Pain resolved after tetracaine drops. Metallic foreign body removed easily with cotton swab leaving remaining rust ring.. MDM: 08:18 Medical Screening Exam initiated rn 08:50 Differential diagnosis: Foreign body in right eye. rn 08:53 Data reviewed: vital signs, nurses notes, and as a result, I will discharge patient. rn Counseling: I had a detailed discussion with the patient and/or guardian regarding the historical points, exam findings, and any diagnostic results supporting the discharge/admit diagnosis, the need for outpatient follow up, to return to the emergency department if symptoms worsen or persist or if there are any questions or concerns that arise at home. Response to treatment: the patient's symptoms have markedly improved after treatment, and as a result, I will discharge patient. Special discussion: I discussed with the patient/guardian in detail that at this point there is no indication for admission to the hospital. It is understood, however, that if the symptoms persist or worsen the patient needs to return immediately for re-evaluation. Based on the history and exam findings, there is no indication for further emergent testing or inpatient evaluation. I discussed with the patient/guardian the need to see the opthamologist for further evaluation of the symptoms. ED course: Piece of metal removed, still has existing rust ring, asked patient to follow-up with ophthalmology for rust ring. Will discharge home with topical antibiotics. Return precautions given and understood.. 08/10 08:57 Order name: Fluoresene Opth strip; Complete Time: 08:57 ss Administered Medications: 08:57 Drug: Tetracaine Ophthalmic Drops 0.5 % 1 drops Ophthalmic once Route: Ophthalmic; ss Site: right eye; Disposition Summary: 08/10/25 08:54 Discharge Ordered Notes: Location: Home rn Problem: new rn Symptoms: have improved rn Condition: Stable rn Diagnosis - Foreign body in cornea, right eye - with rust ring rn Followup: rn - With: Private Physician - When: As needed - Reason: Recheck today's complaints, Re-evaluation by your physician Discharge Instructions: - Discharge Summary Sheet rn - Eye Foreign Body rn Forms: - Medication Reconciliation Form rn - Antibiotic decision unit rn - Prescription Opioid Use rn - Patient Portal Instructions rn - Leadership Thank You Letter rn Prescriptions: - Vigamox 0.5 % Ophthalmic Drops - instill 1 drop OPHTHALMIC route every 8 hours for 7 days; 5 milliliter; rn Refills: 0, Product Selection Permitted Signatures: Ankur Echols MD MD rn Blanchard, Latoya, KOFI RN ss
--- NOTE | 2025-08-10 08:54 | ER ---
Nurse's Notes [facility] Name: Noe Douglas Age: 60 yrs Sex: Male : 1965 Arrival Date: 08/10/2025 Time: 08:13 Bed 11 Private MD: Diagnosis: Foreign body in cornea, right eye-with rust ring Presentation: 08/10 08:25 Chief complaint: Patient states: Using a pulp grinder on Sunday when something got in his ss R eye. Pt c/o R eye pain. Coronavirus screen: Client denies travel out of the [place] in the last 14 days. Ebola Screen: Patient denies exposure to infectious person. Patient denies travel to an Ebola-affected area in the 21 days before illness onset. Initial Sepsis Screen: Does the patient meet any 2 criteria? No. Patient's initial sepsis screen is negative. Does the patient have a suspected source of infection? No. Patient's initial sepsis screen is negative. Risk Assessment: Do you want to hurt yourself or someone else? Patient reports no desire to harm self or others. Onset of symptoms was August 08, 2025. 08:25 Method Of Arrival: Ambulatory ss 08:25 Acuity: MAUREEN 2 ss Historical: - Allergies: 08:26 No Known Allergies; ss - PMHx: 08:26 diabetes mellitus; Asthma; ss - PSHx: 08:26 R arm; ss - Infectious Disease History:: Denies. - Social history:: Smoking status: Patient reports the use of cigarette tobacco products, smokes one pack cigarettes per day. - Family history:: not pertinent. - Hospitalizations: : No recent hospitalization is reported. Screenin:57 Abuse screen: Denies threats or abuse. Denies injuries from another. Nutritional ss screening: No deficits noted. Tuberculosis screening: Never had TB. Assessment: 08:57 Reassessment: Patient appears in no apparent distress at this time. Patient is alert, ss oriented x 3, equal unlabored respirations, skin warm/dry/pink. Patient states feeling better. Patient states symptoms have improved. Vital Signs: 08:25 BP 119 / 74; Pulse 83; Resp 16; Temp 98.4(O); Pulse Ox 100% on R/A; Height 5 ft. 5 in. ss ; Pain 10/10; 08:25 Pain Scale: Adult ss ED Course: 08:14 Patient arrived in ED. im 08:18 Ankur Echols MD is Attending Physician. rn 08:26 Triage completed. ss 08:26 Arm band placed on right wrist. ss 08:57 Patient has correct armband on for positive identification. ss 08:57 Patient did not have IV access during this emergency room visit. ss 08:57 Assist provider with eye exam. Assist provider with eye exam of right eye. using fluorescein stain, Performed by Ankur Echols MD Patient tolerated well. 09:02 Latoya Ortiz, RN is Primary Nurse. ss Administered Medications: 08:57 Drug: Tetracaine Ophthalmic Drops 0.5 % 1 drops Ophthalmic once Route: Ophthalmic; Site: right eye; Medication: 08:57 VIS not applicable for this client. Outcome: 08:54 Discharge ordered by . rn 09:02 Discharged to home ambulatory, ss 09:02 Condition: good 09:02 Discharge instructions given to patient, family, Instructed on discharge instructions, follow up and referral plans. medication usage, Demonstrated understanding of instructions, follow-up care, medications, Prescriptions given X 1, 09:03 Patient left the ED. Signatures: Ankur Echols MD MD rn Blanchard, Shelby, RN RN Gina Fowler Corrections: (The following items were deleted from the chart) 08:58 08:57 No provider procedures requiring assistance completed. ss
[2025-08-10 09:16] VITALS: BP 119/74; TEMP 98.4; O2SAT 100
== END 2025-08-10 09:03 | disposition home or self-care (01) ==
LOC: ER 08:13
PROC: 08C8XZZ Extirpation of Matter from Right Cornea, External Approach (ICD-10-PCS; principal; 2025-08-10)
DX: T15.01XA Foreign body in cornea, right eye, initial encounter (principal)
CPT/HCPCS: 99283